=== PATIENT | female | born 1960 | race Caucasian/White ===

== ENCOUNTER 2024-12-07 05:22 | Inpatient (IN) ==
--- NOTE | 2024-10-25 11:25 | PAT Medication Instructions ---
Medication Instructions Date of Service October 25, 2024 Home Medications Collagen Powder 1 ea PO QAM Lactobacillus acidophilus 10 billion cell capsule (Probiotic) 10,000 mmu cells PO QAM acetaminophen 650 mg tablet,extended release 650 mg PO Q12H PRN Pain ascorbic acid (vitamin C) 1,000 mg tablet (Vitamin C) 1,000 mg PO QAM cholecalciferol (vitamin D3) 50 mcg (2,000 unit) tablet (Vitamin D3) 50 mcg PO QPM cyanocobalamin (vitamin B-12) 5,000 mcg capsule 5,000 mcg PO QPM gabapentin 300 mg capsule 300 mg PO BID ibuprofen 200 mg tablet 400 mg PO Q8H PRN Pain magnesium oxide 400 mg PO HS zinc 50 mg tablet 50 mg PO QPM MEDICATION INSTRUCTIONS: ASK your surgeon for instructions ibuprofen 200 mg tablet 400 mg PO Q8H PRN Pain DO NOT take the morning of surgery Collagen Powder 1 ea PO QAM Lactobacillus acidophilus 10 billion cell capsule (Probiotic) 10,000 mmu cells PO QAM ascorbic acid (vitamin C) 1,000 mg tablet (Vitamin C) 1,000 mg PO QAM Take morning of surgery With a small sip of water, OTHERWISE NOTHING TO EAT OR DRINK AFTER MIDNIGHT: acetaminophen 650 mg tablet,extended release 650 mg PO Q12H PRN Pain gabapentin 300 mg capsule 300 mg PO BID Take evening before surgery cholecalciferol (vitamin D3) 50 mcg (2,000 unit) tablet (Vitamin D3) 50 mcg PO QPM cyanocobalamin (vitamin B-12) 5,000 mcg capsule 5,000 mcg PO QPM magnesium oxide 400 mg PO HS zinc 50 mg tablet 50 mg PO QPM acetaminophen 650 mg tablet,extended release 650 mg PO Q12H PRN Pain gabapentin 300 mg capsule 300 mg PO BID Other Notes If you have any questions please call us at [phone] or [phone] or [phone] or [phone]
--- NOTE | 2024-11-01 14:37 | Anesthesiology Consultation ---
Date of Service November 01, 2024 Assessment & Plan (1) Encounter for pre-operative examination: - will request most recent [facility] neurology office note for chart completion. - awaiting surgeon ordered medical clearance, Dr. Zuniga. - Case discussed in detail with Dr. Olson who advised patient could be a candidate for either neuraxial or general anesthesia with ultimate determination to assigned anesthesiologist discussion with patient am DOS. Bolus therefore not ordered as will be to anesthesiologist's decision am DOS. Patient and her were made aware, they denied questions or concerns. - Outpatient joint assessment: Patient is currently scheduled for inpatient pathway. If re-evaluated and patient/surgeon requests outpatient pathway, patient is not a candidate for outpatient joint program. Chart Review Chart Review: Pending: Refer to Additional Notes / Consult section and Patient seen in Pre Admission Testing Teaching & Discussion Pre-Anesthesia Teaching/Discussion Notes: Instructed NPO after midnight before surgery, except medications with 15 cc of water. Medication instructions provided according to the PAT guidelines. History Surgery Operation Date: 12/07/24 07:00 Proposed Procedures p Right Total Hip Arthroplasty with Dual Mobility Implants - Preet Clancy MD Height/Weight Height: 5 ft 6.5 in Weight: 79.9 kg Allergies Allergy/AdvReac Type Severity Reaction Status Date / Time esomeprazole [From Nexium] Allergy Unknown unsure of Verified 10/25/24 09:34 reaction "wasn't serious" Medications Home Medications Medication Instructions Recorded Confirmed Last Taken Collagen Powder 1 ea PO QAM 10/25/24 10/25/24 Unknown Lactobacillus acidophilus 10 10,000 mmu cells PO QAM 10/25/24 10/25/24 Unknown billion cell capsule (Probiotic) acetaminophen 650 mg 650 mg PO Q12H PRN Pain 10/25/24 10/25/24 Unknown tablet,extended release ascorbic acid (vitamin C) 1,000 mg 1,000 mg PO QAM 10/25/24 10/25/24 Unknown tablet (Vitamin C) cholecalciferol (vitamin D3) 50 50 mcg PO QPM 10/25/24 10/25/24 Unknown mcg (2,000 unit) tablet (Vitamin D3) cyanocobalamin (vitamin B-12) 5,000 mcg PO QPM 10/25/24 10/25/24 Unknown 5,000 mcg capsule gabapentin 300 mg capsule 300 mg PO BID 10/25/24 10/25/24 Unknown ibuprofen 200 mg tablet 400 mg PO Q8H PRN Pain 10/25/24 10/25/24 Unknown magnesium oxide 400 mg PO HS 10/25/24 10/25/24 Unknown zinc 50 mg tablet 50 mg PO QPM 10/25/24 10/25/24 Unknown Past Medical History Medical History (Updated 11/01/24 @ 14:33 by Alice Velazquez PA-C) Cervical spinal stenosis 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 Treated at [facility] then tx to [facility] for 4 weeks in a coma, then to rehab. denies pulmonology complications/limitations now Hx of deep venous thrombosis (~2014) right arm, bilat legs, 2015 while being tx for Guilain Healy "bedrest" Hx of gastroesophageal reflux (GERD) controlled, stable per pt Hx of melanoma of skin s/p excision Hx of vertigo Muscle weakness "generalized all over" Nerve damage left lower extremity-occasional falls-denies any recent falls-ambulates with walking pole or walker for longer ambulation Neuropathy Osteoarthritis Post traumatic stress disorder Urinary urgency Urinary, incontinence, stress female Patient denies h/o stroke, seizures, heart attack, heart failure, DM, HTN, or blood transfusions. Exercise / Class Metabolic Activity III < 4 Walking/Shop/Light housework (occasional shortness of breath if doing increased activity-notes correlation with reduced physical activity due to right hip-denies chest discomfort) Past Family History Family History Other No family history of adverse response to anesthesia Past Surgical History Surgical History History of anesthesia reaction novocaine given for dental procedure>increased vertigo (at time of procedure already had vertigo) Hx of tracheostomy ? details>in place for 6 weeks while being tx in 2014 [facility] [place] teeth removed Past Anesthesia History No Family Hx of Anesthesia Complications and Other (worsened vertigo with novocaine) History of PONV No Hx of PONV and Hx of Motion Sickness Social History Smoking Status: Never smoker Do You Dip or Chew Tobacco: No Hx Alcohol Use: No substance use type: does not use Review of Systems Snoring, denies witnessed apneas. Patient denies chest pain, fever, chills, cough, wheezing, or palpitations. Physical Exam Vital Signs Vitals BP 117/77 P 78 TEMP 98.1 SP02 95% on RA RESP 18 Physical Patient resting comfortably in chair in no acute distress, alert and oriented, responding appropriately throughout visit Full cervical extension range of motion without pain TMD 3.5 finger breadths Mallampati Score 2 Dentition: several caps/crowns, denies chipped or loose teeth, implants or bridges Lungs: normal respiratory effort. Good air movement, clear throughout to auscultation, no adventitious breath sounds Cardiac: regular rate and rhythm, no murmurs noted Carotid arteries: negative bruit bilat Lab Results Anesthesia Preop Results Results Anesthesia Widget: WBC 6.47 K/ul (4.8-10.8) 11/01/24 Hgb 14.1 g/dl (12.0-16.0) 11/01/24 Hct 43.1 % (37.0-47.0) 11/01/24 Plt 320 K/uL (130-400) 11/01/24 Na 139 mmol/L (136-145) 11/01/24 K 4.5 mmol/L (3.5-5.1) 11/01/24 Cl 106 mmol/L (98-107) 11/01/24 CO2 26 mmol/L (21-32) 11/01/24 BUN 18 mg/dl (6-23) 11/01/24 Creat 0.73 mg/dl (0.6-1.2) 11/01/24 Glucose Level 106 mg/dl (70-99(Fasting)) H 11/01/24 PT 10.8 Seconds (9.0-12.0) 11/01/24 PTT 28 Seconds (21-31) 11/01/24 INR 1.0 (0.9-1.1) 11/01/24 Urine Color Yellow 11/01/24 Urine Appearance Clear (Clear) 11/01/24 Urine pH 7.5 (4.5-7.5) 11/01/24 Urine Specific Camino 1.027 (1.000-1.030) 11/01/24 Urine Protein Negative (Negative) 11/01/24 Urine Glucose (UA) Negative (Negative) 11/01/24 Urine Ketones Trace (Negative) H 11/01/24 Urine Blood Negative (Negative) 11/01/24 Urine Nitrite Negative (Negative) 11/01/24 Urine Bilirubin Negative (Negative) 11/01/24 Urine Urobilinogen Negative (Negative) 11/01/24 Urine Leukocyte Esterase Negative (Negative) 11/01/24 Blood Type A Positive 11/01/24 Antibody Screen NEGATIVE 11/01/24 Testing Electrocardiogram Date: 11/01/24 NSR, rate 67 bpm Low voltage QRS Chest X-Ray Date: 11/01/24 No acute findings. Stress Test Date: 11/23/18 MPHR 63% LVEF 79% Low risk, no significant ischemia
--- NOTE | 2024-12-07 05:21 | History & Physical Bridge Note ---
Date of Service December 07, 2024 History & Physical Bridge Note I have examined the patient, reviewed the History & Physical and in the interval since the performance of the History & Physical I have noted the following changes of clinical significance:consent and site verified/reviewed risks especially infection,instability,leg length inequality,DVT/PE and nerve dysfunction. no changes noted.
[2024-12-07] MEDS: LR 60ML/HR IV SCH (06:05)
[2024-12-07] MEDS: LR 500ML BOLUS, THEN 15ML/HR IV SCH (06:05)
[2024-12-07] MEDS ORDERED: TXA 10% Non-IV Routes 100 MG/ML VIAL TOP ONE (06:07)
[2024-12-07] MEDS ORDERED: PROPOFOL IV EMULSION 10 MG/ML 20 ML VIAL IV ONE (06:17)
[2024-12-07] MEDS ORDERED: PROPOFOL IV EMULSION 10 MG/ML 100 ML VIAL IV ONE (06:17)
[2024-12-07] MEDS ORDERED: LIDOCAINE 2% 2 ML VIAL/AMP(20MG/ML) INFIL ONE (06:17)
[2024-12-07] MEDS ORDERED: MIDAZOLAM HCL 1 MG/ML 2ML VIAL ONE (06:18)
[2024-12-07] MEDS ORDERED: DexMEDEtomidine HCL IV 100 MCG/ML VIAL IV ONE (06:28)
[2024-12-07] MEDS ORDERED: BUPIVACAINE 0.5 % 5 MG/1 ML PF 10ML VIAL ONE (06:34)
[2024-12-07] MEDS ORDERED: ROCURONIUM BROMIDE 10 MG/ML 5 ML VIAL IV ONE (06:48)
[2024-12-07] MEDS ORDERED: KETAMINE HCL 10MG/ML SYR ONE (07:13)
[2024-12-07] MEDS ORDERED: ONDANSETRON INJ 2 MG/ML 2 ML VIAL IV PRN (07:22)
[2024-12-07] MEDS ORDERED: PROMETHAZINE HCL 6.25 MG in SODIUM CHLORIDE 0.9% 50 ML IV PRN (07:22)
[2024-12-07] MEDS ORDERED: ATROPINE SULFATE 0.1 MG/ML 10ML SYR IV PRN (07:22)
[2024-12-07] MEDS ORDERED: HYDROmorphone INJ 2 MG/ML SYR/VIAL ONE (07:26)
[2024-12-07] MEDS: ORTHO JOINT ANESTHETIC ONE (07:34)
[2024-12-07] MEDS ORDERED: ePHEDrine sulfate 50 MG/5 ML SYR ONE (07:41)
[2024-12-07] MEDS ORDERED: ONDANSETRON INJ 2 MG/ML 2 ML VIAL ONE (08:01)
[2024-12-07] MEDS ORDERED: DEXAMETHASONE SOD INJ 4 MG/ML VIAL ONE (08:01)
[2024-12-07] MEDS: TRANEXAMIC ACID 1,000 MG x 1 **TOPICAL Use Intraop TOP SCH (08:06)
[2024-12-07] MEDS ORDERED: SUGAMMADEX SODIUM 200 MG/2 ML VIAL IV ONE (08:26)
--- NOTE | 2024-12-07 08:27 | XRay Report ---
XR hip RT 1V HISTORY: 64 years-old Female RT BENRARDINO right hip arthroplasty COMPARISON: None TECHNIQUE: Lateral view of the right hip FINDINGS: Right hip arthroplasty demonstrates satisfactory alignment without acute fracture. Retractors are in place along with deep tissue air during this intraoperative study. IMPRESSION: Satisfactory alignment of the right hip arthroplasty. ACT 112: Negative or not required by law. The above report was generated using voice recognition software. It may contain grammatical, syntax o r spelling errors. Electronically signed by: Uri Uriostegui M.D. 12/07/2024 8:26 AM
[2024-12-07] MEDS: ROPIV 0.5% 246mg, Ketorolac 30mg, EPINEPHrine 0.5mg in NSS INFIL SCH (08:29)
--- NOTE | 2024-12-07 08:42 | Post Operative Brief Note ---
Immediate Post Op Note Date of Surgery December 07, 2024 Pre & Post Diagnosis Operation Date: 12/07/24 07:00 Pre-Op Diagnosis: Right Hip Osteoarthritis Post-Op Diagnosis: Right Hip Osteoarthritis I identified the patient and participated in the time-out.: Yes Procedure Operation Date: 12/07/24 07:00 Actual Procedures p Right Total Hip Arthroplasty with Dual Mobility Implants, Uncemented(Right) - Preet Clancy MD Surgeon Preet Clancy MD Client Relationship Manager [place] no resident or fellow available Estimated Blood Loss 150 Findings Consistent with Post-Op Diagnosis Advanced osteoarthritis right hip with marked deformity of the acetabulum posterior wall and retroversion of the cup. Significant osteophytes around femoral head neck and the acetabulum anteriorly and inferiorly. Fluids 1800 cc Complications None
--- NOTE | 2024-12-07 08:49 | Operative Report ---
Post Operative Report Pre & Post Diagnosis Operation Date: 12/07/24 07:00 Pre-Op Diagnosis: Right Hip Osteoarthritis Post-Op Diagnosis: Right Hip Osteoarthritis I identified the patient and participated in the time-out.: Yes Procedure Operation Date: 12/07/24 07:00 Actual Procedures p Right Total Hip Arthroplasty with Dual Mobility Implants, Uncemented(Right) - Preet Clancy MD Surgeon Preet Clancy MD Wealth Management Director [place] no resident or fellow available Estimated Blood Loss 150 Findings Consistent with Post-Op Diagnosis Severe osteoarthritis right hip with marked femoral head neck osteophytes acetabular osteophytes and posterior deficiency of the acetabular wall secondary to retroversion of the acetabulum. Fluids 1800 cc Specimens Bone pathology Drains None Complications None Indications Severe pain failed conservative management marked x-ray degenerative arthritis right hip Description of Procedure At the patient was brought identified site verified consent verified antibiotics confirmed as being given the patient was placed in the left lateral decubitus position after markers were placed on the leg. The leg lengths were relatively equal. Once prepped and draped officially posterior approach the hip was made based on size of the patient. Full-thickness flaps raised. IT band and gluteus vivek fascia split. Tractors placed with care taken to protect the sciatic nerve. This patient has significant issues with nerve damage secondary to Guillain-Asher syndrome. Cognizance of pressure on any nerve during the procedure was heightened. Once appropriate retractors were placed, and the nerve protected the short external rotators were then identified they were released they were markedly contracted based on her retroversion. Capsule was then teed and the hip was easily dislocated. Femoral neck was then resected leaving about a centimeter at the trochanter lesser measurement. As Exposure was excellent. Remaining labrum and osteophytes resected appropriately. Serial reaming carried up to a 50 to 50 cup impacted in position. There was roughly 70% coverage. It had excellent fixation. A 15 mm x 6.5 mm screw was placed with excellent purchase. The dual mobility liner was then impacted with no issue. Femur was then flexed internally rotated and serial broaching reaming carried up after the canal finder was utilized as well as the lateralizing rasp. Intraoperative x-ray was taken just to confirm the acetabulum being appropriately covered. This revealed that it was screw position with good that we can probably go up 1 size on the femur. That was carried out and went up to a size 3 that fit well. Trial reduction was excellent. All remaining trial elements were removed. Permanent femur was then impacted in position as well as the head neck. The trial reduction carried out no issues. The hip was stable leg lengths were within millimeters of the quality. Acetabular component was rock stable. Wound was then hans irrigated secondary to correction of the retroversion the capsule and the short external rotators could not be repaired. Do not place any undue tension on the nerve as well. Gluteus vivek fascia and IT band fascia were then closed with #2 Vicryl deep fat with the same and superficial subcutaneous tissue with 2-0 Vicryl skin with standstill clips. Appropriate wound dressing was applied. Patient was then transferred recovery in satisfactory stomach tolerated the procedure well. Summary of implants acetabular shell sector cup size 56.5 x 15 screw 50/45 dual mobility liner . 43/22 poly liner. 22+4 articular lesion metal head (no ceramics available). Femoral stem 3 standard. All DePuy J&J total hip system. EBL was 150 cc or less crystalloid 1600 cc. DVT PE prophylaxis to start tomorrow. Bone pathology pending. I attest to the content of the Intraoperative Record and any orders documented therein. Any exceptions are noted below.
--- NOTE | 2024-12-07 08:55 | Orthopedic Progress Note ---
Date of Service December 07, 2024 Orthopedic Progress Note Patient underwent elective right total replacement for severe osteoarthritis acetabular retroversion. She tolerated the procedure well. She denies chest pain shortness of breath fever chills nausea or headache. Vital signs are stable she is afebrile. Neurovascular check reveals intact sciatic nerve upon awakening from anesthesia. Intraoperative lapidary apprentice x-ray looked good. Assessment status post noncemented right total replacement continue care path way. contacted. Initiate anticoagulation tomorrow.
--- NOTE | 2024-12-07 08:57 | Discharge Summary ---
Date of Service December 07, 2024 Final discharge summary will be provided by medical coverage. At this point in time from orthopedic perspective she is awaiting medical clearance for discharge/transfer to rehab hospital or snf facility with inpatient rehab. Admission HPI Per Admitting Provider Osteoarthritis right hip Principal Diagnosis Status post right total hip replacement Discharge Data Allergies Allergy/AdvReac Type Severity Reaction Status Date / Time esomeprazole [From Nexium] Allergy Unknown unsure of Verified 12/07/24 05:45 reaction "wasn't serious" Vaccinations None Consultations Cardiology chief construction inspector and internal medicine Procedures Performed Operation Date: 12/07/24 07:00 Actual Procedures p Right Total Hip Arthroplasty with Dual Mobility Implants, Uncemented(Right) - Preet Clancy MD Ordered Studies X-rays workup for cardiorespiratory event in PACU unclear etiology; bone pathology Hospital Course (1) Status post right hip replacement: Care pathway for total replacement/Awaiting workup for cardiorespiratory event. Plan Care pathway for total replacement complicated by DM Asher syndrome will require higher level of surveillance and potential inpatient rehab. Total Time Total Time Spent Total Time Spent (In Minutes): 10 minutes Discharge Plan Discharge Items Reason For Visit: Right Hip Osteoarthritis Follow-up/Referrals: Eagle Zuniga MD [Primary Care Provider] - Stand-Alone Forms: [facility] Medications and DC Order Prescriptions: No Action ascorbic acid (vitamin C) [Vitamin C] 1,000 mg Tablet 1,000 mg PO QAM acetaminophen [Tylenol Extended Release] 650 mg Tablet Extended Release 650 mg PO Q12H PRN (Reason: Pain) ibuprofen 200 mg Tablet 400 mg PO Q8H PRN (Reason: Pain) gabapentin 300 mg Capsule 300 mg PO BID zinc 50 mg Tablet 50 mg PO QPM Rx Instructions: administer on empty stomach, at least 1 hour before or after meal(s) cholecalciferol (vitamin D3) [Vitamin D3] 50 mcg (2,000 unit) Tablet 50 mcg PO QPM magnesium oxide 400 mg magnesium Capsule 400 mg PO HS Probiotic 10 billion cell Capsule 10,000 mmu cells PO QAM cyanocobalamin (vitamin B-12) 5,000 mcg Capsule 5,000 mcg PO QPM Collagen Powder 1 ea PO QAM Admission Data Admit Date/Time: 12/07/24 09:04 Attending Provider: Slade Aguiar Admit Provider: Preet Clancy Primary Care Provider: Eagle Zuniga Other Providers: [facility]; Timi Ruiz; Gray Martell; Slade Aguiar; Preet Clancy
--- NOTE | 2024-12-07 08:59 | Operative Report ---
Post Operative Report Pre & Post Diagnosis Operation Date: 12/07/24 07:00 Pre-Op Diagnosis: Right Hip Osteoarthritis Post-Op Diagnosis: Right Hip Osteoarthritis I identified the patient and participated in the time-out.: Yes Procedure Operation Date: 12/07/24 07:00 Actual Procedures p Right Total Hip Arthroplasty with Dual Mobility Implants, Uncemented(Right) - Preet Clancy MD Surgeon HATTIE Clancy MD Director Of Community Education [facility] no resident or fellow available Estimated Blood Loss 150 Findings Consistent with Post-Op Diagnosis see operative report Specimens see operative report Drains none Complications none Disposition Accompanied Patient To Recovery: Yes Indications This 64 year old female presented to the office complaints of persisting right hip pain. She had tried conservative care measures without improvement. She elected to proceed with surgical intervention after being educated about potential risks and outcomes. Preoperative imaging was obtained. Description of Procedure The patient was taken to the operating room where she was given general anesthesia. She was prepped and draped in the usual sterile fashion. Please see Dr. Clancy's operative report for specifics of the procedure. I was present for the entire case from initial patient positioning through final wound closure. Assistance was provided in tissue retraction, hemostasis, trial implant placement, final implant placement, and final wound closure. The patient was taken to the recovery room in satisfactory condition. I attest to the content of the Intraoperative Record and any orders documented therein. Any exceptions are noted below.
--- NOTE | 2024-12-07 09:31 | XRay Report ---
XR pelvis 1-2V routine HISTORY: 64 years-old Female S/P R BERNARDINO right hip arthroplasty COMPARISON: Right hip radiographs of same day TECHNIQUE: AP view the pelvis FINDINGS: Moderate osteoarthritis of the left hip. Satisfactory alignment of the right hip arthroplasty. Latera l skin ricky are present along with expected postoperative soft tissue swelling and deep tissue air . No acute fracture, malalignment or unexpected opaque foreign body. IMPRESSION: Satisfactory alignment of the right arthroplasty. ACT 112: Negative or not required by law. The above report was generated using voice recognition software. It may contain grammatical, syntax o r spelling errors. Electronically signed by: Uri Uriostegui M.D. 12/07/2024 9:30 AM
[2024-12-07] MEDS: HYDROmorphone INJ 2 MG/ML SYR/VIAL IV PRN (09:38)
[2024-12-07] MEDS: HYDROmorphone INJ 1 MG/ML SYRINGE ONE (09:43)
[2024-12-07] MEDS: LABETALOL HCL IV 5 MG/ML 20ML IV STA (10:06)
[2024-12-07] MEDS: LABETALOL HCL IV 5 MG/ML 20ML IV ONE (10:11)
--- NOTE | 2024-12-07 10:26 | Anesthesiology Progress Note ---
Date of Service December 07, 2024 Subjective 0945-Responed to code blue in pacu bay 10. cpr in progress on arrival. Bag mask ventilation intitiated with 2 provider technique and 100%fio2. Definitive airway mateus. 0948-Patient was intubated atraumatically with miller2 blade and 7.0 ETT. 21cm. Bilateral BS audible by attending anesthesiologist x 4. Positive CO2 color change visualized. ETT secured at 21cm. No medications given for intubation. Physical Exam Vital Signs: Last Vital Signs Temp 36.3 C L 12/07/24 08:59 Pulse 69 12/07/24 09:35 Resp 18 12/07/24 09:35 BP 130/77 12/07/24 09:35 Pulse Ox 96 12/07/24 09:35 O2 Del Method Oxymask 12/07/24 09:35 O2 Flow Rate 5 12/07/24 09:35 Results & Data ([place]) Medications Administered Hydromorphone HCl (Hydromorphone Inj 2 Mg/Ml Syr/Vial) 0.5 mg IV Q5M PRN PRN Reason: PACU Use Only-Pain Stop: 12/07/24 15:22 Last Admin: 12/07/24 09:38 Dose: 0.5 mg Documented By: XOCHITL Lactated Ringer's (Lr) 1,000 mls @ 60 mls/hr IV .[id number] [facility] Stop: 12/07/24 22:39 Last Admin: 12/07/24 06:05 Dose: Not Given Documented By: BRIA Cefazolin Sodium (Ancef 2000mg) 2,000 mg in 15 mls @ 3.75 mls/min IV PREOP [facility]; Protocol Stop: 12/07/24 18:00 Last Admin: 12/07/24 07:13 Dose: 3.75 mls/min Documented By: [id number] Ropivacaine 246 mg/ Ketorolac Tromethamine 30 mg/Epinephrine HCl 0.5 mg/ Sodium Chloride 100.7 mls @ 0 mls/hr INFIL TODAY@0600 [facility]; Protocol Stop: 12/07/24 16:00 Last Admin: 12/07/24 08:29 Dose: Not Given Documented By: FCO Lactated Ringer's (Lr) 1,000 mls @ 15 mls/hr IV .Q24H [facility] Stop: 12/07/24 18:00 Last Infusion: 12/07/24 06:55 Dose: Infused Documented By: Admin: 12/07/24 06:05 Dose: 15 mls/hr Documented By: BRIA
--- NOTE | 2024-12-07 10:40 | XRay Report ---
SINGLE VIEW CHEST CLINICAL HISTORY: Cardiac arrest status post chest compressions. FINDINGS: An AP, portable, supine chest radiograph is compared to study dated 11/01/2024. The examinat ion is degraded by portable technique and patient rotation. The cardiac silhouette appears enlarged. There is pulmonary vascular congestion. There are airspace opacities at the left lung base. No large pleural effusion or pneumothorax is seen. The skeletal structures are osteopenic. The bony thorax is grossly intact. There is gaseous distention of the stomach. IMPRESSION: 1. The cardiac silhouette appears enlarged and there is pulmonary vascular congestion. 2. Airspace opacities at the left lung base could represent atelectasis versus pneumonia/aspiration p neumonitis. Clinical correlation will be required. 3. No pneumothorax is seen. 4. There is significant gaseous distention of the stomach. ACT 112: Negative or not required by law. Electronically signed by: Otto Alvarez M.D. 12/07/2024 10:39 AM
--- NOTE | 2024-12-07 11:01 | Anesthesiology Progress Note ---
Date of Service December 07, 2024 Anesthesia Post Procedure Vital Signs Vital Signs: Temp Pulse Pulse Pulse Resp BP BP 12/07/24 10:11 103 H 111/71 12/07/24 10:06 138 H 170/87 H 12/07/24 09:35 69 18 130/77 12/07/24 09:25 74 18 137/84 12/07/24 09:15 63 15 122/65 12/07/24 09:05 68 15 138/82 12/07/24 08:59 36.3 C L 76 15 139/83 12/07/24 05:20 36.8 C 75 18 147/90 H Pulse Ox O2 Del Method O2 Flow Rate 12/07/24 10:11 12/07/24 10:06 12/07/24 09:35 96 Oxymask 5 12/07/24 09:25 96 Oxymask 5 12/07/24 09:15 96 Oxymask 5 12/07/24 09:05 98 Oxymask 8 12/07/24 08:59 94 Oxymask 8 12/07/24 05:20 94 Room Air Transfer of Care Handoff Completed per policy Notes Mental Status: alert / awake / arousable and participated in evaluation Patient Amnestic to Procedure: Yes Nausea / Vomiting: adequately controlled Pain: adequately controlled Airway Patency, RR, SpO2: stable & adequate BP & HR: stable & adequate Hydration State: stable & adequate Anesthetic Complications: no major complications apparent Notes: Pt had severe pain on arrival in PACU. Was treated w fentanyl 200mcg and hydromorphone 1 mg in divided doses. Pt subsequently became apneic and unresponsive and pulseless. Chest compressions and mask ventilation w 100% O2 were implemented. Pt was immediately orally intubated. Pt then noted to have return of pulse and BP. After several minutes of ventilation, she emerged with adequate spontaneous ventilation and was extubated. Atrial fibrillation noted on monitor. Body Artist consulted. ICU admission planned.
--- NOTE | 2024-12-07 11:56 | Orthopedic Progress Note ---
Date of Service December 07, 2024 Assessment & Plan Admission and Anticipated Discharge Date Admission Date: December 07, 2024 Subjective Attended to the patient in the PACU roughly 2 hours after I left her in good condition. Apparently there was a cardiorespiratory event in the PACU at some time during my second case. Anesthesia advised me at the completion of my second case. Went and talked to the as well. At this point time the patient is hemodynamically stable is alert and oriented moves her extremities at baseline she has significant Guillain-Asher syndrome. The operative side reveals a hip that is located the sciatic femoral femoral nerve that is functioning. Blood loss was minimal. Cardiology, satellite television installer, and hospitalist consults obtained. Assessment status post right total hip replacement intraoperative uneventful. Postoperative had significant cardiorespiratory event in PACU. Appropriate consultations are in place. Appropriate disposition to intensive care unit in place. has been kept informed. Results & Data Vital Signs (Past 12 Hours) Vital Signs Temp Pulse Pulse Pulse Resp BP BP 12/07/24 11:30 36.1 C L 64 15 108/68 12/07/24 11:20 36.1 C L 72 15 104/72 12/07/24 11:10 64 15 93/65 L 12/07/24 11:00 67 15 123/85 12/07/24 10:50 58 L 15 108/72 12/07/24 10:40 60 18 128/76 12/07/24 10:30 96 H 109/82 12/07/24 10:20 84 94/65 L 12/07/24 10:11 103 H 111/71 12/07/24 10:10 126 H 170/87 H 12/07/24 10:06 138 H 170/87 H 12/07/24 10:00 126 H 139/119 H 12/07/24 09:52 128 H 190/113 H 12/07/24 09:50 151 H 12/07/24 09:40 67 18 121/69 12/07/24 09:35 69 18 130/77 12/07/24 09:25 74 18 137/84 12/07/24 09:15 63 15 122/65 12/07/24 09:05 68 15 138/82 12/07/24 08:59 36.3 C L 76 15 139/83 12/07/24 05:20 36.8 C 75 18 147/90 H Pulse Ox O2 Del Method O2 Flow Rate 12/07/24 11:30 95 Oxymask 5 12/07/24 11:20 97 Oxymask 5 12/07/24 11:10 97 Oxymask 5 12/07/24 11:00 97 Oxymask 7 12/07/24 10:50 96 Oxymask 7 12/07/24 10:40 98 Oxymask 7 12/07/24 10:30 12/07/24 10:20 12/07/24 10:11 12/07/24 10:10 12/07/24 10:06 12/07/24 10:00 12/07/24 09:52 12/07/24 09:50 96 Oxymask 5 12/07/24 09:40 96 Oxymask 5 12/07/24 09:35 96 Oxymask 5 12/07/24 09:25 96 Oxymask 5 12/07/24 09:15 96 Oxymask 5 12/07/24 09:05 98 Oxymask 8 12/07/24 08:59 94 Oxymask 8 12/07/24 05:20 94 Room Air
[2024-12-07] MEDS ORDERED: MAGNESIUM HYDROXIDE SUSP 30 ML UDC PO PRN (12:14)
[2024-12-07] MEDS ORDERED: NALOXONE HCL 0.4 MG/1 ML VIAL/CARP IV PRN (12:14)
[2024-12-07] MEDS ORDERED: ALUMINUM/MAGNESIUM SUSP 30 ML UDC PO PRN (12:14)
[2024-12-07] MEDS ORDERED: HYDROmorphone INJ 0.5 MG/0.5 ML SYR IV PRN (12:14)
[2024-12-07] MEDS ORDERED: diphenhydrAMINE 50 MG/ML VIAL IV PRN (12:14)
--- NOTE | 2024-12-07 12:14 | Cardiology Consultation ---
Date of Consultation December 07, 2024 Assessment & Plan (1) PEA (Pulseless electrical activity): (2) Acute respiratory failure: (3) Paroxysmal atrial fibrillation: Plan ASSESSMENT/PLAN: 1. Respiratory arrest with PEA: Based on available information, event likely related to hypoxia following narcotics, which led to bradycardia. When reviewing records, after transfer to the ICU, she required BiPAP. Labs ordered, including electrolytes, renal function, TSH. Respiratory support as per critical care team. Echo ordered and completed. Continue telemetry. 2. Atrial fibrillation: Paroxysmal. Spontaneously converted after several minutes on 12/07/24. Likely due to her respiratory failure/PEA arrest and postoperative state. If this is the case, she would not require long-term anticoagulation therapy for stroke risk reduction. Continue telemetry. Echo and labs ordered as above. 3. Disposition: Cardiology will continue to follow. Pt care was communicated with Mr. Cedeño of the ortho team. Highly complex medical issues. History of Present Illness Reason for Consultation: Arrest and afib Requesting Physician: Preet Clancy MD Attending Physician: Preet Clancy MD History of Present Illness Ms. 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 Cardiology was consulted due to PEA arrest while in the PACU. She was seen in the PACU late this morning, before transfer to the ICU. As patient was still quite somnolent from surgery, history was obtained by reviewing available records, discussing with nursing staff, orthopedics (Attila Cedeño), and anesthesiology, Dr. Prado. She apparently was in a great deal of pain immediately postoperatively and was given fentanyl 100 mcg and Dilaudid 0.5 mg in the OR and another Dilaudid 1 mg in the PACU. Nursing staff initially reported that there was no pulse oximetry data available and she was noted to become significantly bradycardic and p ulseless. She received chest compressions and underwent brief intubation/ventilation before being extubated. Rhythm strips were available on the chart for review, but unfortunately the entirety of the event was not available for review on telemetry. Rhythm strips demonstrated profound sinus bradycardia. Following the event, after ROSC, she was noted to be in atrial fibrillation with rapid ventricular response on telemetry and ECG. Several minutes later (exact times not available for review at the time of this note or evaluation earlier today), she spontaneously converted to sinus rhythm. She received labetalol 5 mg IV x 2 due to systolic blood pressures in the 180s to 190s and A-fib with RVR with heart rates in the 120s per other provider/nursing staff. When she was seen at the bedside earlier today, she denies chest pain, shortness of breath, palpitations. She denies recent bleeding such as melena, hematochezia, or hematuria. Review of systems: As above. Family history: Mother with [place]. Social history: No reported smoking. . Unaccompanied while in the PACU. Allergies Allergy/AdvReac Type Severity Reaction Status Date / Time esomeprazole [From Nexium] Allergy Unknown unsure of Verified 12/07/24 05:45 reaction "wasn't serious" Home Medications Medication Instructions Recorded Confirmed Type Collagen Powder 1 ea PO QAM 10/25/24 12/07/24 History Lactobacillus acidophilus 10 10,000 mmu cells PO QAM 10/25/24 12/07/24 History billion cell capsule (Probiotic) acetaminophen 650 mg 650 mg PO Q12H PRN Pain 10/25/24 12/07/24 History tablet,extended release ascorbic acid (vitamin C) 1,000 mg 1,000 mg PO QAM 10/25/24 12/07/24 History tablet (Vitamin C) cholecalciferol (vitamin D3) 50 50 mcg PO QPM 10/25/24 12/07/24 History mcg (2,000 unit) tablet (Vitamin D3) cyanocobalamin (vitamin B-12) 5,000 mcg PO QPM 10/25/24 12/07/24 History 5,000 mcg capsule gabapentin 300 mg capsule 300 mg PO BID 10/25/24 12/07/24 History ibuprofen 200 mg tablet 400 mg PO Q8H PRN Pain 10/25/24 12/07/24 History magnesium oxide 400 mg PO HS 10/25/24 12/07/24 History zinc 50 mg tablet 50 mg PO QPM 10/25/24 12/07/24 History Problem List (Updated 12/07/24 @ 08:55 by Preet Clancy MD) Paroxysmal atrial fibrillation Acute respiratory failure Afib PEA (Pulseless electrical activity) Cardiac arrest Status post right hip replacement Patient History Medical History Nerve damage left lower extremity-occasional falls-denies any recent falls-ambulates with walking pole or walker for longer ambulation Muscle weakness "generalized all over" Hx of vertigo Cervical spinal stenosis Osteoarthritis Urinary urgency Urinary, incontinence, stress female Hx of gastroesophageal reflux (GERD) controlled, stable per pt Hx of melanoma of skin s/p excision Neuropathy Post traumatic stress disorder Hx of deep venous thrombosis (~2014) right arm, bilat legs, 2015 while being tx for Guilain Foster "bedrest" 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 Treated at [place] then tx to [place] [facility] for 4 weeks in a coma, then to rehab. denies pulmonology complications/limitations now Surgical History (Updated 12/07/24 @ 08:55 by Preet Clancy MD) History of anesthesia reaction novocaine given for dental procedure>increased vertigo (at time of procedure already had vertigo) [place] teeth removed Hx of tracheostomy ? details>in place for 6 weeks while being tx in 2014 [facility] Family History Other No family history of adverse response to anesthesia Social History Smoking Status: Never smoker Second Hand Exposure: No; Do You Dip or Chew Tobacco: No; Hx Alcohol Use: No Preferred Language: Greek Manager Pricing Required: No Beliefs That Will Affect Care: None Current Living Situation: Spouse Feels Safe at Home: Yes Safety Concerns: Feels Safe At This Time Assistive Devices: Contacts, Glasses and Walker Physical Exam Physical Exam: Gen.: No acute distress. Somnolent but arousable with verbal communication. Neck: No JVD. No bruits. Normal carotid upstrokes bilaterally. Cardiac: Regular. Normal S1-S2. No murmurs, rubs, or gallops. Pulmonary: Decreased breath sounds bilaterally, but otherwise clear to auscultation bilaterally without wheezes, rales, or rhonchi. Abdomen: Soft, nontender, nondistended, with hypoactive bowel sounds. No bruits noted. Extremities: 2+ radial pulses bilaterally. 2+ posterior tibialis pulses bilaterally. No edema or cyanosis. Results & Data Vital Signs (Past 12 Hours) Vital Signs Temp Pulse Pulse Pulse Resp BP BP 12/07/24 11:30 36.1 C L 64 15 108/68 12/07/24 11:20 36.1 C L 72 15 104/72 12/07/24 11:10 64 15 93/65 L 12/07/24 11:00 67 15 123/85 12/07/24 10:50 58 L 15 108/72 12/07/24 10:40 60 18 128/76 12/07/24 10:30 96 H 109/82 12/07/24 10:20 84 94/65 L 12/07/24 10:11 103 H 111/71 12/07/24 10:10 126 H 170/87 H 12/07/24 10:06 138 H 170/87 H 12/07/24 10:00 126 H 139/119 H 12/07/24 09:52 128 H 190/113 H 12/07/24 09:50 151 H 12/07/24 09:40 67 18 121/69 12/07/24 09:35 69 18 130/77 12/07/24 09:25 74 18 137/84 12/07/24 09:15 63 15 122/65 12/07/24 09:05 68 15 138/82 12/07/24 08:59 36.3 C L 76 15 139/83 12/07/24 05:20 36.8 C 75 18 147/90 H Pulse Ox O2 Del Method O2 Flow Rate 12/07/24 11:30 95 Oxymask 5 12/07/24 11:20 97 Oxymask 5 12/07/24 11:10 97 Oxymask 5 12/07/24 11:00 97 Oxymask 7 12/07/24 10:50 96 Oxymask 7 12/07/24 10:40 98 Oxymask 7 12/07/24 10:30 12/07/24 10:20 12/07/24 10:11 12/07/24 10:10 12/07/24 10:06 12/07/24 10:00 12/07/24 09:52 12/07/24 09:50 96 Oxymask 5 12/07/24 09:40 96 Oxymask 5 12/07/24 09:35 96 Oxymask 5 12/07/24 09:25 96 Oxymask 5 12/07/24 09:15 96 Oxymask 5 12/07/24 09:05 98 Oxymask 8 12/07/24 08:59 94 Oxymask 8 12/07/24 05:20 94 Room Air Laboratory Results Laboratory Results - last 24 hr 12/07/24 12/07/24 12:10 12:46 POC Glucose 195 H Nasal Screen MRSA (PCR) Negative Diagnostic Findings Available telemetry strips reviewed: Near the time of her pulseless event, profound sinus bradycardia. No noted arrhythmia during the event. Following the event, atrial fibrillation with rapid ventricular response. When evaluated late this morning, on telemetry sinus rhythm was noted. ECHO 12/07/24: 1. Normal left ventricular size and systolic function. EF 60-65%. No regional wall motion abnormalities. Mild concentric left ventricular hypertrophy. 2. No significant valvular abnormalities. 3. Normal estimated right ventricular systolic pressure. 4. Technically difficult study, enhanced with IV Definity. 5. No prior study available for comparison. Labs ordered and reviewed from 12/07/2024: Mild anemia, normal potassium, normal renal function, normal magnesium, normal TSH. ECG personally reviewed 12/07/2024: afib rvr [address] abnormality. History and physical report reviewed. Medications Administered Current Inpatient Medications Acetaminophen (Acetaminophen 500 Mg Tab) 1,000 mg PO Q8 ANDREIA Stop: 01/06/25 13:59 Last Admin: 12/07/24 14:16 Dose: Not Given Al Hydrox/Mg Hydrox/Simethicone (Aluminum/Magnesium Susp 30 Ml Udc) 15 ml PO Q 4H PRN PRN Reason: Heartburn Stop: 01/06/25 12:13 Apixaban (Apixaban 2.5 Mg Tab) 2.5 mg PO BID ANDREIA Stop: 01/07/25 08:59 Ascorbic Acid (Ascorbic Acid 500 Mg Tab) 500 mg PO BIDM ANDREIA Stop: 01/06/25 16:59 Last Admin: 12/07/24 16:13 Dose: Not Given Bisacodyl (Bisacodyl 10 Mg Supp) 10 mg GA DAILY PRN PRN Reason: Constipation Stop: 01/06/25 12:13 Dextrose (Dextrose 50% 50 Ml Syringe) 25 - 50 ml IV UD PRN; Protocol PRN Reason: Hypoglycemia Protocol Stop: 01/06/25 12:49 Diphenhydramine HCl (Diphenhydramine 50 Mg/Ml Vial) 25 mg IV Q8H PRN PRN Reason: Itching Stop: 01/06/25 12:13 Docusate Sodium (Docusate Sodium 100 Mg Cap) 100 mg PO BID [facility] Stop: 01/06/25 20:59 Ferrous Gluconate (Ferrous Gluconate 324 Mg Tab) 324 mg PO BIDM ANDREIA Stop: 01/06/25 16:59 Last Admin: 12/07/24 16:13 Dose: Not Given Gabapentin (Gabapentin 300 Mg Cap) 300 mg PO BID ANDREIA Stop: 01/06/25 12:59 Last Admin: 12/07/24 12:38 Dose: Not Given Glucagon (Glucagon For Inj 1 Mg Vial) 1 mg SQ UD PRN; Protocol PRN Reason: Hypoglycemia Protocol Stop: 01/06/25 12:49 Glucose (Glucose 40% Gel 15 Gm Tube) 15 - 30 gm PO UD PRN; Protocol PRN Reason: Hypoglycemia Protocol Stop: 01/06/25 12:49 Glucose (Glucose 10 Tab/Tube) 4 - 8 tab PO UD PRN; Protocol PRN Reason: Hypoglycemia Protocol Stop: 01/06/25 12:49 Hydromorphone HCl (Hydromorphone Inj 0.5 Mg/0.5 Ml Syr) 0.5 mg IV Q2H PRN PRN Reason: Pain or Pre PT Stop: 12/21/24 12:13 Sodium Chloride (Nss) 1,000 mls @ 100 mls/hr IV .Q10H [facility] Stop: 12/08/24 06:00 Last Admin: 12/07/24 12:33 Dose: 100 mls/hr Cefazolin Sodium (Ancef 2000mg) 2,000 mg in 15 mls @ 3.75 mls/min IV Q8H [facility]; Protocol Stop: 12/07/24 23:03 Last Admin: 12/07/24 15:10 Dose: 3.75 mls/min Dexamethasone 10 mg/ Syringe 2.5 mls @ 1 mls/min IV TODAY@08 [facility] Stop: 12/08/24 08:03 Insulin Aspart (Insulin Aspart Per Unit Charge) 0 units SC Q6H [facility] Stop: 01/06/25 12:59 Last Admin: 12/07/24 13:21 Dose: 1 units Ketorolac Tromethamine (Ketorolac Tromethamine 15 Mg/Ml Vial) 15 mg IV Q6H ANDREIA Stop: 12/08/24 07:01 Last Admin: 12/07/24 13:09 Dose: 15 mg Magnesium Hydroxide (Magnesium Hydroxide Susp 30 Ml Udc) 30 ml PO Q6H PRN PRN Reason: Constipation Stop: 01/06/25 12:13 Magnesium Oxide (Magnesium Oxide 400 Mg Tab) 400 mg PO HS ANDREIA Stop: 01/06/25 20:59 Metoclopramide HCl (Metoclopramide Hcl Inj 5 Mg/Ml 2 Ml Vial) 10 mg IV Q6H PRN PRN Reason: Nausea And Vomiting Stop: 01/06/25 12:13 Last Admin: 12/07/24 13:09 Dose: 10 mg Miscellaneous (Carbohydrates For Hypoglycemia ) 15 - 30 gm PO UD PRN PRN Reason: Hypoglycemia Protocol Stop: 01/06/25 12:49 Multivitamins (Multivitamin Tab) 1 tab PO QAM ANDREIA Stop: 01/07/25 08:59 Naloxone HCl (Naloxone Hcl 0.4 Mg/1 Ml Vial/Carp) 0.1 mg IV Q5M PRN PRN Reason: Oversedation/Resp Depression Stop: 01/06/25 12:13 Ondansetron HCl (Ondansetron Inj 2 Mg/Ml 2 Ml Vial) 4 mg IV Q6H PRN PRN Reason: Nausea And Vomiting Stop: 01/06/25 12:13 Last Admin: 12/07/24 12:32 Dose: 4 mg Oxycodone HCl (Oxycodone Hcl Ir 5 Mg Tab (Immediate Release)) 5 - 10 mg PO Q4H PRN PRN Reason: Pain or Pre PT Stop: 12/21/24 12:13 Sennosides (Senna 8.6 Mg Tab) 17.2 mg PO HS ANDREIA Stop: 01/06/25 20:59 Zinc Sulfate (Zinc Sulfate 220 Mg Capsule) 220 mg PO QPM ANDREIA Stop: 01/06/25 20:59 PG Care Time/CCT Total # of Minutes Spent Total Time Spent with Patient: Total time spent is greater than 50% in coordination of care (as documented) at patient's floor/unit and/or counseling patient: Coding Level of Care Code 84564 INT INP/OBS CARE 3/75MIN Diagnoses PEA (Pulseless electrical activity) I46.9 Acute respiratory failure J96.00 Paroxysmal atrial fibrillation I48.0
[2024-12-07] MEDS: ACETAMINOPHEN 1000 MG/100 ML IV IV ONE (12:16)
[2024-12-07] MEDS: ONDANSETRON INJ 2 MG/ML 2 ML VIAL IV PRN (12:32)
--- NOTE | 2024-12-07 12:32 | Critical Care Consultation ---
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 The patient had a PEA arrest in the PACU post operatively likley due to hypoxia with ROSC. PEA Cardiac arrest with ROSC likely related to hypoxia -Patient had ACLS for 5 minutes. -Patient hemodynamically stable. Monitor. DVT/Pulmonary embolism -Continue Eliquis. Atrial Fibrillation likely stress induced -Patient had an episode post ROSC of atrial fibrillation -Patient spontaneously cardioverted and is Sinus Rhythm upon arrival to the ICU. -Cardiology consulted. Acute respiratory failure likely related to narcotics and anaesthetic agents -Patient having apneic episodes with episodes of hypoxia. -Bipap placed 21% 10/5 with RR12 -CXR showed no pneumothorax with left lower lobe opacity possible atelectasis v. possible aspiration. -Maintain SpO2 > 92% Thank you for allowing us to participate in this patients care. Please reach out if you have questions or concerns. Supervising Physician Co-Signing Physician Notes I saw and evaluated the patient with NAINA Márquez, and agree with findings and plan as documented in the note. 64-year-old female who came to the hospital to have total hip arthroplasty. Patient had a PEA arrest in the PACU which was bradycardic and then cardiac arrest She was intubated briefly in the PACU and then extubated Sent to ICU for further care. Chest x-ray post arrest did not show any rib fractures, no pneumothorax, atelectasis appreciated in the left lower lobe, increased cardiac silhouette. No clear pulmonary infiltrate EKG postarrest just showed sinus tachycardia with some ST depression on the lateral leads and A-fib RVR 2D echo 12/07/2024: EF 60-65%, mild concentric LVH, RV normal in size and function She had gotten fentanyl 200 mcg in the PACU. When I examined the patient patient was still under the effect of sedation. She was on BiPAP 5/5, interim tidal volume was in the 200s, increase it to 8/8 and a tidal volume picked up. She was saturating 97% on 21% FiO2. As per the was at bedside patient does snore at night significantly such that he sleeps in the other room because of that I did examine the patient later on during the day and she seemed to be neurologically intact. Constitutional: No acute distress HEENT: EOMI, PERRLA Respiratory system: Good air entry bilaterally, no wheeze, no rhonchi, minimal crackles bilateral lower lobe CVS: S1-S2 positive, no murmurs or gallops Abdomen: Soft, nontender, nondistended, positive bowel sounds x4 Extremities: +2 pulses bilaterally radialis/ dorsalis pedis, no cyanosis, no edema Neuro: Awake alert oriented x3, cranial nerves II to XII grossly intact, right hip dressing in place with no hematoma Psych: Normal mood and affect G/U: Positive Almonte --Prophylaxis VTE: IPC, Eliquis to be started tomorrow GI: Pepcid Lines: Peripheral Diet: Cardiac Plan: Strict In-N-Out para continue with BiPAP nightly and as needed shortness of breath Would recommend to keep oxygen saturation between 90-92% Would recommend outpatient polysomnography All questions inquiries of the patient's as well as patient were answered in depth I have personally spent 38 minutes of critical care time in the direct management of this patient. This is a life/limb threatening event. This includes time spent evaluating patient, direct bedside care, chart review, placing orders, interpretation of diagnostic studies, discussion with consultants, patient, and family members, as well as other required patient management activities. This time is exclusive of all separately billable procedures, and teaching time and separate from and in addition to any other critical care service time. Please note the above document was generated using voice recognition software. It may contain grammatical, syntax or spelling errors. History of Present Illness Reason for Consultation: PEA arrest with ROSC s/p right total hip arthroplasty. Attending Physician: Preet Clancy MD History of Present Illness Wen Mustafa is a 64-year-old female with past medical history of Guillain-Bruni syndrome in 2015 requiring a tracheotomy for 6 weeks, cervical spine stenosis, osteoarthritis, GERD, stress incontinence, and DVT in 2015 during her treatment for Guillain-Bruni; who presented to [facility] on 12/07/2024 for a planned right total hip arthroplasty. Per report the procedure went well without complication. She was extubated post operatively and brought to the PACU. Patient had significant pain while in PACU and received escalating narcotic doses to include fentanyl and Dilaudid. Unfortunately, she became lethargic, apneic, and hypoxic. She became bradycardic to the 40's and was believed to be in PEA arrest. The patient had ACLS performed for approximately 5 minutes with ROSC. The patient was reintubated during the resuscitation. The patient was watched in the PACU and was extubated again. She was able to follow commands, respond appropriately, and was hemodynamically stable but remained lethargic. The patient was brought to the ICU for continued evaluation and management of PEA arrest secondary to hypoxia with ROSC. Allergies Allergy/AdvReac Type Severity Reaction Status Date / Time esomeprazole [From Nexium] Allergy Unknown unsure of Verified 12/07/24 05:45 reaction "wasn't serious" Home Medications Medication Instructions Recorded Confirmed Type Collagen Powder 1 ea PO QAM 10/25/24 12/07/24 History Lactobacillus acidophilus 10 10,000 mmu cells PO QAM 10/25/24 12/07/24 History billion cell capsule (Probiotic) acetaminophen 650 mg 650 mg PO Q12H PRN Pain 10/25/24 12/07/24 History tablet,extended release ascorbic acid (vitamin C) 1,000 mg 1,000 mg PO QAM 10/25/24 12/07/24 History tablet (Vitamin C) cholecalciferol (vitamin D3) 50 50 mcg PO QPM 10/25/24 12/07/24 History mcg (2,000 unit) tablet (Vitamin D3) cyanocobalamin (vitamin B-12) 5,000 mcg PO QPM 10/25/24 12/07/24 History 5,000 mcg capsule gabapentin 300 mg capsule 300 mg PO BID 10/25/24 12/07/24 History ibuprofen 200 mg tablet 400 mg PO Q8H PRN Pain 10/25/24 12/07/24 History magnesium oxide 400 mg PO HS 10/25/24 12/07/24 History zinc 50 mg tablet 50 mg PO QPM 10/25/24 12/07/24 History Patient History Medical History (Updated 12/07/24 @ 18:05 by Slade Aguiar MD) Nerve damage left lower extremity-occasional falls-denies any recent falls-ambulates with walking pole or walker for longer ambulation Muscle weakness "generalized all over" Hx of vertigo Cervical spinal stenosis Osteoarthritis Urinary urgency Urinary, incontinence, stress female Hx of gastroesophageal reflux (GERD) controlled, stable per pt Hx of melanoma of skin s/p excision Neuropathy Post traumatic stress disorder Hx of deep venous thrombosis (~2014) right arm, bilat legs, 2014 while being tx for Guilain Bruni "bedrest" 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 Treated at [place] then tx to [place] for 4 weeks in a coma, then to rehab. denies pulmonology complications/limitations now Surgical History (Updated 12/07/24 @ 08:55 by Preet Clancy MD) History of anesthesia reaction novocaine given for dental procedure>increased vertigo (at time of procedure already had vertigo) [place] teeth removed Hx of tracheostomy ? details>in place for 6 weeks while being tx in 2014 [facility] Family History Other No family history of adverse response to anesthesia Social History Smoking Status: Never smoker Second Hand Exposure: No; Do You Dip or Chew Tobacco: No; Hx Alcohol Use: No Preferred Language: Romansh Bread Racker Required: No Beliefs That Will Affect Care: None Current Living Situation: Spouse Feels Safe at Home: Yes Safety Concerns: Feels Safe At This Time Assistive Devices: Contacts, Glasses and Walker Review of Systems 2 Review of Systems: All systems reviewed & are unremarkable except as noted in HPI & below Physical Exam 2 Physical Exam: VITALS: Reviewed. WEIGHT/BMI reviewed. GEN: Stated age appearing, well-developed, NAD. PSYCH: Good Judgment. AOx3. HEENT -Head: NC/AT; -Eyes: PERRL, EOMI. No discharge or redn ess; -Ears: External ears are normal. -Nose: Normal nares. NECK: Supple, with no masses. CV: RRR, no m/r/g. LUNGS: CTAB, no w/r/c. ABD: Soft, NT/ND, NBS, no masses or organomegaly. : Almonte drainage yellow clear urine. SKIN: Warm, well perfused. No skin rashes or abnormal lesions. MSK: No deformities. Right hip arthroplasty site without hematoma or drainage EXT: No clubbing, cyanosis, or edema. NEURO: Generalized weakness 3/5 all extremities. No focal deficits. lethargic but arouses to stim/voice. Follows commands. Results & Data Results & Data Vital Signs (Past 12 Hours) Vital Signs Temp Pulse Pulse Pulse Resp BP BP 12/07/24 12:15 99/67 L 12/07/24 12:12 64 21 12/07/24 12:00 12/07/24 12:00 109/75 12/07/24 12:00 109/75 12/07/24 11:58 111/72 12/07/24 11:58 111/72 12/07/24 11:58 111/72 12/07/24 11:57 69 20 12/07/24 11:30 36.1 C L 64 15 108/68 12/07/24 11:20 36.1 C L 72 15 104/72 12/07/24 11:10 64 15 93/65 L 12/07/24 11:00 67 15 123/85 12/07/24 10:50 58 L 15 108/72 12/07/24 10:40 60 18 128/76 12/07/24 10:30 96 H 109/82 12/07/24 10:20 84 94/65 L 12/07/24 10:11 103 H 111/71 12/07/24 10:10 126 H 170/87 H 12/07/24 10:06 138 H 170/87 H 12/07/24 10:00 126 H 139/119 H 12/07/24 09:52 128 H 190/113 H 12/07/24 09:50 151 H 12/07/24 09:40 67 18 121/69 12/07/24 09:35 69 18 130/77 12/07/24 09:25 74 18 137/84 12/07/24 09:15 63 15 122/65 12/07/24 09:05 68 15 138/82 12/07/24 08:59 36.3 C L 76 15 139/83 12/07/24 05:20 36.8 C 75 18 147/90 H Pulse Ox O2 Del Method O2 Flow Rate 12/07/24 12:15 12/07/24 12:12 97 3 12/07/24 12:00 96 Oxymask 4 12/07/24 12:00 12/07/24 12:00 12/07/24 11:58 12/07/24 11:58 12/07/24 11:58 12/07/24 11:57 12/07/24 11:30 95 Oxymask 5 12/07/24 11:20 97 Oxymask 5 12/07/24 11:10 97 Oxymask 5 12/07/24 11:00 97 Oxymask 7 12/07/24 10:50 96 Oxymask 7 12/07/24 10:40 98 Oxymask 7 12/07/24 10:30 12/07/24 10:20 12/07/24 10:11 12/07/24 10:10 12/07/24 10:06 12/07/24 10:00 12/07/24 09:52 12/07/24 09:50 96 Oxymask 5 12/07/24 09:40 96 Oxymask 5 12/07/24 09:35 96 Oxymask 5 12/07/24 09:25 96 Oxymask 5 12/07/24 09:15 96 Oxymask 5 12/07/24 09:05 98 Oxymask 8 12/07/24 08:59 94 Oxymask 8 12/07/24 05:20 94 Room Air Laboratory Results 12/07/24 16:48 12/07/24 16:48 Critical Care Results & Data Vital Signs (Past 12 Hours) Vital Signs Temp Pulse Pulse Pulse Resp BP BP 12/07/24 12:15 99/67 L 12/07/24 12:12 64 21 12/07/24 12:00 12/07/24 12:00 109/75 12/07/24 12:00 109/75 12/07/24 11:58 111/72 12/07/24 11:58 111/72 12/07/24 11:58 111/72 12/07/24 11:57 69 20 12/07/24 11:30 36.1 C L 64 15 108/68 12/07/24 11:20 36.1 C L 72 15 104/72 12/07/24 11:10 64 15 93/65 L 12/07/24 11:00 67 15 123/85 12/07/24 10:50 58 L 15 108/72 12/07/24 10:40 60 18 128/76 12/07/24 10:30 96 H 109/82 12/07/24 10:20 84 94/65 L 12/07/24 10:11 103 H 111/71 12/07/24 10:10 126 H 170/87 H 12/07/24 10:06 138 H 170/87 H 12/07/24 10:00 126 H 139/119 H 12/07/24 09:52 128 H 190/113 H 12/07/24 09:50 151 H 12/07/24 09:40 67 18 121/69 12/07/24 09:35 69 18 130/77 12/07/24 09:25 74 18 137/84 12/07/24 09:15 63 15 122/65 12/07/24 09:05 68 15 138/82 12/07/24 08:59 36.3 C L 76 15 139/83 12/07/24 05:20 36.8 C 75 18 147/90 H Pulse Ox O2 Del Method O2 Flow Rate 12/07/24 12:15 12/07/24 12:12 97 3 12/07/24 12:00 96 Oxymask 4 12/07/24 12:00 12/07/24 12:00 12/07/24 11:58 12/07/24 11:58 12/07/24 11:58 12/07/24 11:57 12/07/24 11:30 95 Oxymask 5 12/07/24 11:20 97 Oxymask 5 12/07/24 11:10 97 Oxymask 5 12/07/24 11:00 97 Oxymask 7 12/07/24 10:50 96 Oxymask 7 12/07/24 10:40 98 Oxymask 7 12/07/24 10:30 12/07/24 10:20 12/07/24 10:11 12/07/24 10:10 12/07/24 10:06 12/07/24 10:00 12/07/24 09:52 12/07/24 09:50 96 Oxymask 5 12/07/24 09:40 96 Oxymask 5 12/07/24 09:35 96 Oxymask 5 12/07/24 09:25 96 Oxymask 5 12/07/24 09:15 96 Oxymask 5 12/07/24 09:05 98 Oxymask 8 12/07/24 08:59 94 Oxymask 8 12/07/24 05:20 94 Room Air Lab & Micro Results (Past 24 Hours) 2 RBC 4.22 M/uL (4.20-5.40) 12/07/24 WBC 9.75 K/ul (4.8-10.8) 12/07/24 Hgb 11.9 g/dl (12.0-16.0) L 12/07/24 Hct 36.6 % (37.0-47.0) L 12/07/24 MCV 86.7 fL (80.0-100.0) 12/07/24 MCH 28.2 pg (25.0-34.0) 12/07/24 MCHC 32.5 g/dL (32.0-36.0) 12/07/24 RDW Standard Deviation 43.8 fL (36.4-46.3) 12/07/24 RDW Coefficient of Variation 14.0 % (11.5-14.5) 12/07/24 Plt Count 262 K/uL (130-400) 12/07/24 MPV 10.1 fL (9.4-12.4) 12/07/24 2 Na 139 mmol/L (136-145) 12/07/24 K 3.9 mmol/L (3.5-5.1) 12/07/24 Cl 106 mmol/L (98-107) 12/07/24 CO2 26 mmol/L (21-32) 12/07/24 Anion Gap 7 (3-11) 12/07/24 BUN 12 mg/dl (6-23) 12/07/24 Creatinine 0.62 mg/dl (0.6-1.2) 12/07/24 BUN/Creatinine Ratio 19.4 (10-20) 12/07/24 Glu 156 mg/dl (70-99(Fasting)) H 12/07/24 Ca 8.0 mg/dl (8.6-10.3) L 12/07/24 2 Mg 1.8 mg/dl (1.7-2.4) 12/07/24 16:48 Calcium Level 8.0 mg/dl (8.6-10.3) L 12/07/24 16:48 Diagnostic Findings (Past 24 Hours) Hip X-Ray 12/07/24 08:04 XR hip RT 1V HISTORY: 64 years-old Female RT BERNARDINO right hip arthroplasty COMPARISON: None TECHNIQUE: Lateral view of the right hip FINDINGS: Right hip arthroplasty demonstrates satisfactory alignment without acute fracture. Retractors are in place along with deep tissue air during this intraoperative study. IMPRESSION: Satisfactory alignment of the right hip arthroplasty. ACT 112: Negative or not required by law. The above report was generated using voice recognition software. It may contain grammatical, syntax or spelling errors. Electronically signed by: Uri Uriostegui M.D. 12/07/2024 8:26 AM Pelvis X-Ray 12/07/24 08:40 XR pelvis 1-2V routine HISTORY: 64 years-old Female S/P R BERNARDINO right hip arthroplasty COMPARISON: Right hip radiographs of same day TECHNIQUE: AP view the pelvis FINDINGS: Moderate osteoarthritis of the left hip. Satisfactory alignment of the right hip arthroplasty. Lateral skin ricky are present along with expected postoperative soft tissue swelling and deep tissue air. No acute fracture, malalignment or unexpected opaque foreign body. IMPRESSION: Satisfactory alignment of the right arthroplasty. ACT 112: Negative or not required by law. The above report was generated using voice recognition software. It may contain grammatical, syntax or spelling errors. Electronically signed by: Uri Uriostegui M.D. 12/07/2024 9:30 AM Chest X-Ray 12/07/24 10:08 SINGLE VIEW CHEST CLINICAL HISTORY: Cardiac arrest status post chest compressions. FINDINGS: An AP, portable, supine chest radiograph is compared to study dated 11/01/2024. The examination is degraded by portable technique and patient rotation. The cardiac silhouette appears enlarged. There is pulmonary vascular congestion. There are airspace opacities at the left lung base. No large pleural effusion or pneumothorax is seen. The skeletal structures are osteopenic. The bony thorax is grossly intact. There is gaseous distention of the stomach. IMPRESSION: 1. The cardiac silhouette appears enlarged and there is pulmonary vascular congestion. 2. Airspace opacities at the left lung base could represent atelectasis versus pneumonia/aspiration pneumonitis. Clinical correlation will be required. 3. No pneumothorax is seen. 4. There is significant gaseous distention of the stomach. ACT 112: Negative or not required by law. Electronically signed by: Otto Alvarez M.D. 12/07/2024 10:39 AM I & O Totals 24 Hours 12/06/24 12/07/24 12/08/24 06:59 06:59 06:59 Intake Total 0 / 0 1400 / 1400 Output Total 150 / 150 Balance 0 / 0 1250 / 1250 Cumulative 09/29/24 12:33 thru 12/07/24 11:15 Intake Total 1400 Output Total 150 Balance 1250 RT Ventilator Mngmt (Last Documented) Ventilator Ordered Settings Respiratory Rate 21 12/07/24 12:12 Ventilator - PT Measurements Respiratory Rate 21 Coding Level of Care Code 52553 CRITICAL CARE 1ST 30-74M Diagnoses Status post right hip replacement Z96.641 Osteoarthritis M19.90 Muscle weakness M62.81 Cardiac arrest I46.9
[2024-12-07] MEDS: SODIUM CHLORIDE 0.9% 1,000 ML IV SCH (12:33)
[2024-12-07] MEDS: TRANEXAMIC ACID 1,000 MG **IV Pre-op IV SCH (12:36)
[2024-12-07] MEDS: GABAPENTIN 300 MG CAP PO SCH (12:38)
[2024-12-07] MEDS ORDERED: GLUCOSE 40% GEL 15 GM TUBE PO PRN (12:50)
[2024-12-07] MEDS ORDERED: DEXTROSE 50% 50 ML SYRINGE IV PRN (12:50)
[2024-12-07] MEDS ORDERED: GLUCOSE 10 TAB/TUBE PO PRN (12:50)
[2024-12-07] MEDS ORDERED: CARBOHYDRATES FOR HYPOGLYCEMIA PO PRN (12:50)
[2024-12-07] MEDS ORDERED: GLUCAGON FOR INJ 1 MG VIAL SQ PRN (12:50)
[2024-12-07] MEDS: METOCLOPRAMIDE HCL INJ 5 MG/ML 2 ML VIAL IV PRN (13:09)
[2024-12-07] MEDS: KETOROLAC TROMETHAMINE 15 MG/ML VIAL IV SCH (13:09)
[2024-12-07] MEDS: INSULIN ASPART PER UNIT CHARGE SC SCH (13:21)
--- NOTE | 2024-12-07 13:42 | Orthopedic Consultation ---
Date of Consultation December 07, 2024 Orthopedic Consult Patient underwent elective right total hip replacement. Did well during the procedure however roughly an hour after the procedure had a respiratory cardiac event in the recovery room. Unclear etiology. Appropriate consultation has been obtained from cardiology machine bander and cellophaner and internal medicine. Presently she is in the intensive care unit in room #4. She is attended by her . He has been up to date and been informed of all of the decisions that have been occurring. Past medical past surgical history as noted in the H&P and in the previous record. New event is this cardiac respiratory event. Physical exam pertinent to orthopedics reveals all 4 extremities move upon command she is at her baseline neurologic function in all 4 extremities is with her chronic changes secondary to Guillain-Asher. Her right hip is located. The wound dressing is clean dry and intact. She has intact femoral and sciatic nerve functioning in the right lower extremity which is identical to preop. Postop x-rays look excellent. Assessment status post right total replacement. Postop course complicated by cardiac respiratory event. Appropriate workup is being rendered. Keeping /spouse informed. Communicated with ICU team. When appropriate she can be sitting in a chair or walking ambulating with a walker with appropriate hip precautions weightbearing as tolerated on the right lower extremity. Planning for inpatient rehab type facility was made preoperatively as it was suspected that she would require a fair amount of assistance based on the chronicity and debilitation from her Guillain-Asher syndrome. Anticoagulation can be initiated tomorrow 24 hours postop Eliquis or equivalent. Do not suggest using Lovenox as that increases wound drainage. Will follow daily.
[2024-12-07] MEDS: ACETAMINOPHEN 500 MG TAB PO SCH (14:16)
[2024-12-07] MEDS: dexAMETHasone 8 MG in SYRINGE 0 ML IV ONE (16:13)
[2024-12-07] MEDS: ASCORBIC ACID 500 MG TAB PO SCH (16:13)
[2024-12-07] MEDS: FERROUS GLUCONATE 324 MG TAB PO SCH (16:13)
--- NOTE | 2024-12-07 16:42 | XCELERA ---
[id number]
[2024-12-07 17:19] LABS: Hematocrit (blood only) 36.6 % (37.0-47.0); Hemoglobin 11.9 g/dl (12.0-16.0); Mean Corpuscular Hemoglobin 28.2 pg (25.0-34.0); Mean Corpuscular Volume 86.7 fL (80.0-100.0); Platelet Count 262 K/uL (130-400); RDW Standard Deviation 43.8 fL (36.4-46.3); Red Blood Count 4.22 M/uL (4.20-5.40); White Blood Count 9.75 K/ul (4.8-10.8)
[2024-12-07 17:35] LABS: Anion Gap 7.0 (3-11); Blood Urea Nitrogen 12.0 mg/dl (6-23); Calcium 8.0 mg/dl (8.6-10.3); Carbon Dioxide 26.0 mmol/L (21-32); Chloride 106.0 mmol/L (98-107); Creatinine Clr Calc Pharmacy 98.3 ml/min; Glucose 156.0 mg/dl (70-99(Fasting)); Magnesium 1.8 mg/dl (1.7-2.4); Potassium 3.9 mmol/L (3.5-5.1); Sodium 139.0 mmol/L (136-145)
--- NOTE | 2024-12-07 17:48 | Orthopedic Progress Note ---
Date of Service December 07, 2024 Assessment & Plan (1) Status post right hip replacement: Plan: The patient and her were educated regarding today's findings. Conservative care measures were discussed. She is currently in a normal sinus rhythm with a rate in the high 60s/low 70s. Oxygen saturation is 100% on room air. She will remain in her wedge pillow for protection of the hip. The patient states she normally has very restless legs and is constantly moving due to a feeling of stiffness. She understands that the wedge pillow is necessary. Her echo has been completed but no report is available at this time. Anticipate changing her dressing tomorrow to a Prevena wound VAC. Start PT/OT tomorrow. Discharge when I will be at the discretion of the hospitalist team. She is aware. Admission and Anticipated Discharge Date Admission Date: December 07, 2024 Subjective This 64-year-old female is seen today in ICU bed 104, and follow-up from her right total hip arthroplasty performed earlier today. She is sitting up in bed and is conversive. Her is at bedside. She states there is mild hip discomfort, but her worst complaint is nausea. She has already received Zofran and Reglan without much improvement. She is due for more Zofran in an hour. She denies any chest pain or shortness of breath at this point. No vomiting. No additional complaints. Physical Exam Physical Exam: General: Well-developed, well-nourished, middle-aged female, in no acute distress. Laying in bed. Alert and oriented. Conversive. Skin: Warm and dry with good turgor. Postsurgical dressing is in place on the right hip. Dressings are dry. Musculoskeletal: The patient is able to actively plantarflex and dorsiflex her ankles as well as flex her knees. This causes discomfort at her surgical site. Neurologic: Gross sensation is intact across both lower extremities by soft touch. Peripheral pulses are 2+. Results & Data Vital Signs (Past 12 Hours) Vital Signs Temp Pulse Pulse Resp BP BP Pulse Ox 12/07/24 14:35 116/69 12/07/24 14:33 35.0 C L 61 15 100 12/07/24 14:30 87/64 L 12/07/24 14:18 34.7 C L 70 28 H 97 12/07/24 14:15 97/70 L 12/07/24 14:00 101/68 12/07/24 14:00 101/68 12/07/24 13:45 91/67 L 12/07/24 13:45 91/67 L 12/07/24 13:45 91/67 L 12/07/24 13:42 34.2 C L 64 16 95 12/07/24 13:36 34.2 C L 62 12 95 12/07/24 13:30 100/72 12/07/24 13:27 34.1 C L 71 27 H 82 L 12/07/24 13:21 34.1 C L 59 L 14 97 12/07/24 13:18 34.1 C L 63 15 99 12/07/24 13:18 67 22 99 12/07/24 13:16 100/74 12/07/24 13:09 34.1 C L 71 28 H 98 12/07/24 13:01 113/69 12/07/24 13:01 113/69 12/07/24 13:01 113/69 12/07/24 13:00 34.1 C L 71 41 H 97 12/07/24 12:48 34.1 C L 66 42 H 98 12/07/24 12:45 118/75 12/07/24 12:45 118/75 12/07/24 12:45 118/75 12/07/24 12:45 118/75 12/07/24 12:45 118/75 12/07/24 12:30 96/62 L 12/07/24 12:30 96/62 L 12/07/24 12:30 96/62 L 12/07/24 12:15 99/67 L 12/07/24 12:12 64 21 97 12/07/24 12:00 12/07/24 12:00 96 12/07/24 12:00 109/75 12/07/24 12:00 109/75 12/07/24 11:58 111/72 12/07/24 11:58 111/72 12/07/24 11:58 111/72 12/07/24 11:57 69 20 12/07/24 11:30 36.1 C L 64 15 108/68 95 12/07/24 11:20 36.1 C L 72 15 104/72 97 12/07/24 11:10 64 15 93/65 L 97 12/07/24 11:00 67 15 123/85 97 12/07/24 10:50 58 L 15 108/72 96 12/07/24 10:40 60 18 128/76 98 12/07/24 10:30 96 H 109/82 12/07/24 10:20 84 94/65 L 12/07/24 10:11 103 H 111/71 12/07/24 10:10 126 H 170/87 H 12/07/24 10:06 138 H 170/87 H 12/07/24 10:00 126 H 139/119 H 12/07/24 09:52 128 H 190/113 H 12/07/24 09:50 151 H 96 12/07/24 09:40 67 18 121/69 96 12/07/24 09:35 69 18 130/77 96 12/07/24 09:25 74 18 137/84 96 12/07/24 09:15 63 15 122/65 96 12/07/24 09:05 68 15 138/82 98 12/07/24 08:59 36.3 C L 76 15 139/83 94 O2 Del Method O2 Flow Rate FiO2 12/07/24 14:35 12/07/24 14:33 BiPAP 12/07/24 14:30 12/07/24 14:18 12/07/24 14:15 12/07/24 14:00 12/07/24 14:00 12/07/24 13:45 12/07/24 13:45 12/07/24 13:45 12/07/24 13:42 12/07/24 13:36 12/07/24 13:30 12/07/24 13:27 12/07/24 13:21 12/07/24 13:18 12/07/24 13:18 21 12/07/24 13:16 12/07/24 13:09 12/07/24 13:01 12/07/24 13:01 12/07/24 13:01 12/07/24 13:00 12/07/24 12:48 12/07/24 12:45 12/07/24 12:45 12/07/24 12:45 12/07/24 12:45 12/07/24 12:45 12/07/24 12:30 12/07/24 12:30 12/07/24 12:30 12/07/24 12:15 12/07/24 12:12 3 12/07/24 12:00 Oxymask 4 12/07/24 12:00 Oxymask 4 12/07/24 12:00 12/07/24 12:00 12/07/24 11:58 12/07/24 11:58 12/07/24 11:58 12/07/24 11:57 12/07/24 11:30 Oxymask 5 12/07/24 11:20 Oxymask 5 12/07/24 11:10 Oxymask 5 12/07/24 11:00 Oxymask 7 12/07/24 10:50 Oxymask 7 12/07/24 10:40 Oxymask 7 12/07/24 10:30 12/07/24 10:20 12/07/24 10:11 12/07/24 10:10 12/07/24 10:06 12/07/24 10:00 12/07/24 09:52 12/07/24 09:50 Oxymask 5 12/07/24 09:40 Oxymask 5 12/07/24 09:35 Oxymask 5 12/07/24 09:25 Oxymask 5 12/07/24 09:15 Oxymask 5 12/07/24 09:05 Oxymask 8 12/07/24 08:59 Oxymask 8 Laboratory Results CBC obtained this afternoon shows a normal white count at 9.75. H&H of 11.9 and 36.6. Platelets normal at 262,000. Normal electrolytes. Normal BUN and creatinine. Glucose 156. Calcium 8.0. Magnesium normal at 1.8. TSH is pending.
[2024-12-07 17:50] LABS: Thyroid Stimulating Hormone 0.551 uIu/ml (0.300-4.500)
--- NOTE | 2024-12-07 18:05 | Hospitalist Progress Note ---
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 At that time she required a tracheostomy for 6 weeks. 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 She presented to [facility] for planned total right hip arthroplasty and developed PEA in the PACU with a brief run of atrial fibrillation after obtaining ROSC patient remains in normal sinus rhythm she has no remembrance of the event she has no cognitive decline #PEA/respiratory arrest. Patient notes a sensitivity to opiate therapy. Currently will monitor in the ICU overnight continue to watch cardiac rhythm for recurrence of atrial arrhythmia. Cardiac echocardiogram was performed with normal systolic function and no significant valvular or regional wall motion abnormalities. Cardiology consult is pending. Patient will have BiPAP available for nighttime sleepiness #Previous VTE patient remains on Eliquis and this abuse postoperatively for DVT prevention for hip. After discussion with primary service orthopedics they requested hospitalist take over as primary tending to help facilitate movement through the hospital stay and possible referral to rehab. Patient was transferred to my care today Admission and Anticipated Discharge Date Admission Date: December 07, 2024 Subjective This 64-year-old female is seen today in ICU patient had respiratory distress and PEA in the PACU following her right total hip arthroplasty performed 12/07/2024. She is sitting up in bed and is conversive. Her is at bedside. She states there is mild hip discomfort, patient states that she has some persistent issues from her previous Guillain-Asher including weakness of her left leg and right arm patient is suffering from mild nausea. Physical Exam Physical Exam: Pleasant awake and alert conversant no focal deficits with exception of minor slight to see weakness of her left leg. Card exam is regular without murmurs clicks rubs or gallops lungs are clear without wheezes or crackles abdomen is NABS soft and nontender. She has good distal pulses bilaterally in both feet Results & Data Results & Data Vital Signs (Past 12 Hours) Vital Signs Temp Pulse Pulse Resp BP BP Pulse Ox 12/07/24 16:00 72 12/07/24 14:35 116/69 12/07/24 14:33 95.0 F L 61 15 100 08/27/25 14:30 87/64 L 12/07/24 14:18 94.5 F L 70 28 H 97 12/07/24 14:15 97/70 L 12/07/24 14:00 101/68 12/07/24 14:00 101/68 12/07/24 13:45 91/67 L 12/07/24 13:45 91/67 L 12/07/24 13:45 91/67 L 12/07/24 13:42 93.6 F L 64 16 95 12/07/24 13:36 93.6 F L 62 12 95 12/07/24 13:30 100/72 12/07/24 13:27 93.4 F L 71 27 H 82 L 12/07/24 13:21 93.4 F L 59 L 14 97 12/07/24 13:18 93.4 F L 63 15 99 12/07/24 13:18 67 22 99 12/07/24 13:16 100/74 12/07/24 13:09 93.4 F L 71 28 H 98 12/07/24 13:01 113/69 12/07/24 13:01 113/69 12/07/24 13:01 113/69 12/07/24 13:00 93.4 F L 71 41 H 97 12/07/24 12:48 93.4 F L 66 42 H 98 12/07/24 12:45 118/75 12/07/24 12:45 118/75 12/07/24 12:45 118/75 12/07/24 12:45 118/75 12/07/24 12:45 118/75 12/07/24 12:30 96/62 L 12/07/24 12:30 96/62 L 12/07/24 12:30 96/62 L 12/07/24 12:15 99/67 L 12/07/24 12:12 64 21 97 12/07/24 12:00 12/07/24 12:00 96 12/07/24 12:00 109/75 12/07/24 12:00 109/75 12/07/24 11:58 111/72 12/07/24 11:58 111/72 12/07/24 11:58 111/72 12/07/24 11:57 69 20 12/07/24 11:30 97.0 F L 64 15 108/68 95 12/07/24 11:20 97.0 F L 72 15 104/72 97 12/07/24 11:10 64 15 93/65 L 97 12/07/24 11:00 67 15 123/85 97 12/07/24 10:50 58 L 15 108/72 96 12/07/24 10:40 60 18 128/76 98 12/07/24 10:30 96 H 109/82 12/07/24 10:20 84 94/65 L 12/07/24 10:11 103 H 111/71 12/07/24 10:10 126 H 170/87 H 12/07/24 10:06 138 H 170/87 H 12/07/24 10:00 126 H 139/119 H 12/07/24 09:52 128 H 190/113 H 12/07/24 09:50 151 H 96 12/07/24 09:40 67 18 121/69 96 12/07/24 09:35 69 18 130/77 96 12/07/24 09:25 74 18 137/84 96 12/07/24 09:15 63 15 122/65 96 12/07/24 09:05 68 15 138/82 98 12/07/24 08:59 97.3 F L 76 15 139/83 94 O2 Del Method O2 Flow Rate FiO2 12/07/24 16:00 12/07/24 14:35 12/07/24 14:33 BiPAP 12/07/24 14:30 12/07/24 14:18 12/07/24 14:15 12/07/24 14:00 12/07/24 14:00 12/07/24 13:45 12/07/24 13:45 12/07/24 13:45 12/07/24 13:42 12/07/24 13:36 12/07/24 13:30 12/07/24 13:27 12/07/24 13:21 12/07/24 13:18 12/07/24 13:18 21 12/07/24 13:16 12/07/24 13:09 12/07/24 13:01 12/07/24 13:01 12/07/24 13:01 12/07/24 13:00 12/07/24 12:48 12/07/24 12:45 12/07/24 12:45 12/07/24 12:45 12/07/24 12:45 12/07/24 12:45 12/07/24 12:30 12/07/24 12:30 12/07/24 12:30 12/07/24 12:15 12/07/24 12:12 3 12/07/24 12:00 Oxymask 4 12/07/24 12:00 Oxymask 4 12/07/24 12:00 12/07/24 12:00 12/07/24 11:58 12/07/24 11:58 12/07/24 11:58 12/07/24 11:57 12/07/24 11:30 Oxymask 5 12/07/24 11:20 Oxymask 5 12/07/24 11:10 Oxymask 5 12/07/24 11:00 Oxymask 7 12/07/24 10:50 Oxymask 7 12/07/24 10:40 Oxymask 7 12/07/24 10:30 12/07/24 10:20 12/07/24 10:11 12/07/24 10:10 12/07/24 10:06 12/07/24 10:00 12/07/24 09:52 12/07/24 09:50 Oxymask 5 12/07/24 09:40 Oxymask 5 12/07/24 09:35 Oxymask 5 12/07/24 09:25 Oxymask 5 12/07/24 09:15 Oxymask 5 12/07/24 09:05 Oxymask 8 12/07/24 08:59 Oxymask 8 Laboratory Results Reviewed CBC reviewed chemistry discussed the case with orthopedic primary service and intensive care unit provider PG Care Time/CCT Total # of Minutes Spent Total Time Spent with Patient: Total time spent is greater than 50% in coordination of care (as documented) at patient's floor/unit and/or counseling patient: Coding Level of Care Code 03851 SUB INP/OBS CARE 2/35MIN Diagnoses PEA (Pulseless electrical activity) I46.9 Guillain Asher syndrome G61.0 Afib I48.91
[2024-12-07] MEDS: MAGNESIUM OXIDE 400 MG TAB PO SCH (20:50)
[2024-12-07] MEDS: ZINC SULFATE 220 MG CAPSULE PO SCH (20:50)
[2024-12-07] MEDS: SENNA 8.6 MG TAB PO SCH (20:50)
[2024-12-07] MEDS: DOCUSATE SODIUM 100 MG CAP PO SCH (20:50)
[2024-12-07] MEDS: FAMOTIDINE 40 MG TABLET PO SCH (20:51)
[2024-12-08 04:48] LABS: Hematocrit (blood only) 32.9 % (37.0-47.0); Hemoglobin 10.8 g/dl (12.0-16.0); Immature Granulocytes # (auto) 0.03 K/uL (0.01-0.20); Immature Granulocytes % (auto) 0.4 %; Mean Corpuscular Hemoglobin 29.0 pg (25.0-34.0); Mean Corpuscular Volume 88.2 fL (80.0-100.0); Platelet Count 247 K/uL (130-400); RDW Standard Deviation 45.2 fL (36.4-46.3); Red Blood Count 3.73 M/uL (4.20-5.40); White Blood Count 8.46 K/ul (4.8-10.8)
[2024-12-08 05:05] LABS: Anion Gap 4.0 (3-11); Blood Urea Nitrogen 11.0 mg/dl (6-23); Calcium 8.0 mg/dl (8.6-10.3); Carbon Dioxide 27.0 mmol/L (21-32); Chloride 109.0 mmol/L (98-107); Creatinine Clr Calc Pharmacy 97.2 ml/min; Glucose 145.0 mg/dl (70-99(Fasting)); Magnesium 2.0 mg/dl (1.7-2.4); Potassium 4.4 mmol/L (3.5-5.1); Sodium 140.0 mmol/L (136-145)
--- NOTE | 2024-12-08 07:01 | Orthopedic Progress Note ---
Date of Service December 08, 2024 Assessment & Plan Admission and Anticipated Discharge Date Admission Date: December 07, 2024 Orthopedic Progress Note Postop day #1 status post right total hip replacement. Postop course complicated by some cardio respiratory event. Being evaluated appropriately by client service coordinator professor of sociology and hospitalist. At this point in time she is resting comfortably in bed. She denies chest pain shortness of breath fever chills nausea vomiting or headache. She feels like she is in her usual state of good health with her baseline Guillain-Asher. Wound dressing clean dry and intact neurovascular check right lower extremity reveals intact sciatic nerve and femoral nerve functioning. Hip located supple motion. Wound dressing clean dry and intact. Calves nontender. A.m. labs reveal stable hematocrit at 32 and change. Remaining labs without any major issues. Assessment overall doing reasonably well. Await final cardiology and client service coordinator recommendations. Hospitalist recommendations. This point in time BRYON Almonte order PT OT try to get her movement. Await final decision on transfer to floor. Updated physicians trading assistant with wound care.
[2024-12-08] MEDS: dexAMETHasone 10 MG in SYRINGE 0 ML IV SCH (07:54)
[2024-12-08] MEDS: MULTIVITAMIN TAB PO SCH (07:56)
[2024-12-08] MEDS: APIXABAN 2.5 MG TAB PO SCH (07:57)
--- NOTE | 2024-12-08 08:17 | Critical Care Progress Note ---
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 The patient had a PEA arrest in the PACU post operatively likley due to hypoxia with ROSC. PEA Cardiac arrest with ROSC likely related to hypoxia -Patient had ACLS for 5 minutes. -Patient hemodynamically stable. Monitor. DVT/Pulmonary embolism -Continue Eliquis. Atrial Fibrillation likely stress induced -Patient had an episode post ROSC of atrial fibrillation -Patient spontaneously cardioverted and is Sinus Rhythm upon arrival to the ICU. -Cardiology consulted. Likely stress related. Will recommend outpatient monitor to further look for PAF. Acute respiratory failure likely related to narcotics and anaesthetic agents -Patient having apneic episodes with episodes of hypoxia. -Off Bipap this am and on room air this am -CXR showed no pneumothorax with left lower lobe opacity possible atelectasis v. possible aspiration. -Maintain SpO2 > 92% Right hip total arthroplasty -PT/OT -Rest of management per ortho. Thank you for allowing us to participate in this patients care. Please reach out if you have questions or concerns. Admission and Anticipated Discharge Date Admission Date: December 07, 2024 Supervising Physician Co-Signing Physician Notes I saw and evaluated the patient with NAINA Márquez, and agree with findings and plan as documented in the note. 2D echo 12/07/2024: EF 60-65%, mild concentric LVH, RV normal in size and function Patient seen and examined at bedside. No acute distress, no adverse events overnight Still complaining of some chest discomfort when she is she is coughing. She was saturating 98% on room air. Systolic blood pressure was in the 130s with heart rate in the 70s Denied any nausea or vomiting No difficulty swallowing. Finished her breakfast without any issues No dizziness, no headache Constitutional: No acute distress HEENT: EOMI, PERRLA Respiratory system: Good air entry bilaterally, no wheeze, no rhonchi, minimal crackles bilateral lower lobe CVS: S1-S2 positive, no murmurs or gallops Abdomen: Soft, nontender, nondistended, positive bowel sounds x4 Extremities: +2 pulses bilaterally radialis/ dorsalis pedis, no cyanosis, no edema Neuro: Awake alert oriented x3, cranial nerves II to XII grossly intact, right hip dressing in place with no hematoma Psych: Normal mood and affect G/U: Positive Almonte --Prophylaxis VTE: Eliquis GI: Pepcid Lines: Peripheral Diet: Cardiac Plan: In/out: +1.3 L, urine output 2140 Minimal drop in hemoglobin possibly secondary to being +1.3 L, continue to trend Eliquis has been restarted The patient hemodynamically stable to be downgraded to medical floor PT OT has been consulted Please note the above document was generated using voice recognition software. It may contain grammatical, syntax or spelling errors.Any formal questions or concerns about the content, text or information contained within the body of this dictation should be directly addressed to the provider for clarification. Subjective "I feel much better." "I have a little pain this am but my nausea is gone." Patient off Bipap this am and on room air with SpO2 with SpO2 97%. Patient in sinus rhythm and hemodynamically stable. Will plan for downgrade this am. Review of Systems 2 Review of Systems: All systems reviewed & are unremarkable except as noted in HPI & below Physical Exam 2 Physical Exam: VITALS: Reviewed. WEIGHT/BMI reviewed. GEN: Stated age appearing, well-developed, NAD. PSYCH: Good Judgment. AOx3. HEENT -Head: NC/AT; -Eyes: PERRL, EOMI. No discharge or redn ess; -Ears: External ears are normal. -Nose: Normal nares. NECK: Supple, with no masses. CV: RRR, no m/r/g. LUNGS: CTAB, no w/r/c. ABD: Soft, NT/ND, NBS, no masses or organomegaly. : Almonte drainage yellow clear urine. SKIN: Warm, well perfused. No skin rashes or abnormal lesions. MSK: No deformities. Right hip arthroplasty site without hematoma or drainage EXT: No clubbing, cyanosis, or edema. NEURO: Generalized weakness 3/5 all extremities. No focal deficits. Follows commands. Results & Data Results & Data Vital Signs (Past 12 Hours) Vital Signs Temp Pulse Resp BP Pulse Ox 12/08/24 00:00 36.9 C 73 16 94 12/08/24 00:00 116/62 12/08/24 00:00 71 12/07/24 23:33 36.9 C 76 12 93 12/07/24 23:09 36.9 C 71 14 94 12/07/24 23:00 110/64 12/07/24 23:00 110/64 12/07/24 22:54 36.8 C 73 12 93 12/07/24 22:30 36.8 C 70 13 93 12/07/24 22:06 36.8 C 75 15 96 12/07/24 22:00 121/69 12/07/24 21:42 36.8 C 72 16 94 12/07/24 21:12 36.8 C 73 17 96 12/07/24 20:30 36.8 C 86 14 96 Laboratory Results 12/08/24 04:13 12/08/24 04:13 Abnormal Lab Results 12/07/24 12/07/24 12/07/24 12:10 12:46 16:48 WBC 9.75 RBC 4.22 Hgb 11.9 L Hct 36.6 L MCV 86.7 MCH 28.2 MCHC 32.5 RDW Std Deviation 43.8 RDW Coeff of Manda 14.0 Plt Count 262 MPV 10.1 Immature Gran % (Auto) Neut % (Auto) Lymph % (Auto) Wolfe % (Auto) Eos % (Auto) Baso % (Auto) Neut # (Auto) Lymph # (Auto) Wolfe # (Auto) Eos # (Auto) Baso # (Auto) Immature Gran # (Auto) Sodium 139 Potassium 3.9 Chloride 106 Carbon Dioxide 26 Anion Gap 7 BUN 12 Creatinine 0.62 Est Cr Clr Drug Dosing 98.3 eGFR 100.00 BUN/Creatinine Ratio 19.4 Glucose 156 H POC Glucose 195 H Calcium 8.0 L Phosphorus Magnesium 1.8 TSH 0.551 Nasal Screen MRSA (PCR) Negative 12/07/24 12/08/24 12/08/24 18:05 00:12 04:13 WBC 8.46 RBC 3.73 L Hgb 10.8 L Hct 32.9 L MCV 88.2 MCH 29.0 MCHC 32.8 RDW Std Deviation 45.2 RDW Coeff of Manda 14.2 Plt Count 247 MPV 10.3 Immature Gran % (Auto) 0.4 Neut % (Auto) 80.1 Lymph % (Auto) 10.9 Wolfe % (Auto) 8.4 Eos % (Auto) 0.1 Baso % (Auto) 0.1 Neut # (Auto) 6.78 H Lymph # (Auto) 0.92 L Wolfe # (Auto) 0.71 H Eos # (Auto) 0.01 Baso # (Auto) 0.01 Immature Gran # (Auto) 0.03 Sodium 140 Potassium 4.4 Chloride 109 H Carbon Dioxide 27 Anion Gap 4 BUN 11 Creatinine 0.64 Est Cr Clr Drug Dosing 97.2 eGFR 99.24 BUN/Creatinine Ratio 17.2 Glucose 145 H POC Glucose 139 H 144 H Calcium 8.0 L Phosphorus 3.6 Magnesium 2.0 TSH Nasal Screen MRSA (PCR) 12/08/24 07:13 WBC RBC Hgb Hct MCV MCH MCHC RDW Std Deviation RDW Coeff of Manda Plt Count MPV Immature Gran % (Auto) Neut % (Auto) Lymph % (Auto) Wolfe % (Auto) Eos % (Auto) Baso % (Auto) Neut # (Auto) Lymph # (Auto) Wolfe # (Auto) Eos # (Auto) Baso # (Auto) Immature Gran # (Auto) Sodium Potassium Chloride Carbon Dioxide Anion Gap BUN Creatinine Est Cr Clr Drug Dosing eGFR BUN/Creatinine Ratio Glucose POC Glucose 81 Calcium Phosphorus Magnesium TSH Nasal Screen MRSA (PCR) Diagnostic Findings Hip X-Ray 12/07/24 08:04 XR hip RT 1V HISTORY: 64 years-old Female RT BERNARDINO right hip arthroplasty COMPARISON: None TECHNIQUE: Lateral view of the right hip FINDINGS: Right hip arthroplasty demonstrates satisfactory alignment without acute fracture. Retractors are in place along with deep tissue air during this intraoperative study. IMPRESSION: Satisfactory alignment of the right hip arthroplasty. ACT 112: Negative or not required by law. The above report was generated using voice recognition software. It may contain grammatical, syntax or spelling errors. Electronically signed by: Uri Uriostegui M.D. 12/07/2024 8:26 AM Pelvis X-Ray 12/07/24 08:40 XR pelvis 1-2V routine HISTORY: 64 years-old Female S/P R BERNARDINO right hip arthroplasty COMPARISON: Right hip radiographs of same day TECHNIQUE: AP view the pelvis FINDINGS: Moderate osteoarthritis of the left hip. Satisfactory alignment of the right hip arthroplasty. Lateral skin ricky are present along with expected postoperative soft tissue swelling and deep tissue air. No acute fracture, malalignment or unexpected opaque foreign body. IMPRESSION: Satisfactory alignment of the right arthroplasty. ACT 112: Negative or not required by law. The above report was generated using voice recognition software. It may contain grammatical, syntax or spelling errors. Electronically signed by: Uri Uriostegui M.D. 12/07/2024 9:30 AM Chest X-Ray 12/07/24 10:08 SINGLE VIEW CHEST CLINICAL HISTORY: Cardiac arrest status post chest compressions. FINDINGS: An AP, portable, supine chest radiograph is compared to study dated 11/01/2024. The examination is degraded by portable technique and patient rotation. The cardiac silhouette appears enlarged. There is pulmonary vascular congestion. There are airspace opacities at the left lung base. No large pleural effusion or pneumothorax is seen. The skeletal structures are osteopenic. The bony thorax is grossly intact. There is gaseous distention of the stomach. IMPRESSION: 1. The cardiac silhouette appears enlarged and there is pulmonary vascular congestion. 2. Airspace opacities at the left lung base could represent atelectasis versus pneumonia/aspiration pneumonitis. Clinical correlation will be required. 3. No pneumothorax is seen. 4. There is significant gaseous distention of the stomach. ACT 112: Negative or not required by law. Electronically signed by: Otto Alvarez M.D. 12/07/2024 10:39 AM Coding Level of Care Code 91521 SUB INP/OBS CARE 2/35MIN Diagnoses Status post right hip replacement Z96.641 Osteoarthritis M19.90 Muscle weakness M62.81 Cardiac arrest I46.9
--- NOTE | 2024-12-08 09:08 | Cardiology Progress Note ---
Date of Service December 08, 2024 Assessment & Plan (1) PEA (Pulseless electrical activity): (2) Acute respiratory failure: (3) Paroxysmal atrial fibrillation: Plan ASSESSMENT/PLAN: 1. Respiratory arrest with PEA: Based on available information, event likely related to hypoxia following narcotics, which led to bradycardia. No further episodes. Now on room air. Unremarkable echo. No arrhythmia on monitor following PACU events. 2. Atrial fibrillation: Paroxysmal possibly lone A-fib in the setting of postoperative state and CPR following PEA arrest. Spontaneously converted after several minutes on 12/07/24. Likely due to her respiratory failure/PEA arrest and postoperative state. If this is the case, she would not require long-term anticoagulation therapy for stroke risk reduction. Continue telemetry. Recommend 30-day event monitor for recurrent A-fib. Will arrange through the cardiology office. If unremarkable, no further follow-up necessary from a cardiology standpoint. 3. Disposition: Cardiology will sign off at this time. Please call with any further questions or concerns. Pt care was communicated with Dr. Aguiar of the primary hospitalist service. Admission and Anticipated Discharge Date Admission Date: December 07, 2024 Subjective She denies angina, syncope, near syncope, shortness of breath, palpitations, edema, or bleeding. She has chest pain following chest compressions yesterday. She has mild hip pain postoperatively. Prior to her surgery on 12/07/2024, she denies any outpatient chest pain, synco pe, near syncope, shortness of breath, or palpitations. She was unaccompanied. Physical Exam Physical Exam: Gen.: No acute distress. Alert and oriented. Neck: No JVD. Cardiac: Regular. Normal S1-S2. No murmurs, rubs, or gallops. Pulmonary: Clear to auscultation bilaterally without wheezes, rales, or rhonchi. Abdomen: Soft, nontender, nondistended, with hypoactive bowel sounds. No bruits noted. Extremities: 2+ radial pulses bilaterally. 2+ posterior tibialis pulses bilaterally. No edema or cyanosis. Results & Data Vital Signs (Past 12 Hours) Vital Signs Temp Pulse Resp BP Pulse Ox O2 Del Method 12/08/24 08:00 134/65 12/08/24 08:00 134/65 12/08/24 08:00 37.4 C 74 17 96 12/08/24 08:00 Room Air 12/08/24 08:00 71 12/08/24 07:00 37.1 C 71 21 134/65 94 Room Air 12/08/24 00:00 36.9 C 73 16 94 12/08/24 00:00 116/62 12/08/24 00:00 71 12/07/24 23:33 36.9 C 76 12 93 12/07/24 23:09 36.9 C 71 14 94 12/07/24 23:00 110/64 12/07/24 23:00 110/64 12/07/24 22:54 36.8 C 73 12 93 12/07/24 22:30 36.8 C 70 13 93 12/07/24 22:06 36.8 C 75 15 96 12/07/24 22:00 121/69 12/07/24 21:42 36.8 C 72 16 94 12/07/24 21:12 36.8 C 73 17 96 Laboratory Results Laboratory Results - last 24 hr 12/07/24 12/07/24 12/07/24 12:10 12:46 16:48 WBC 9.75 RBC 4.22 Hgb 11.9 L Hct 36.6 L MCV 86.7 MCH 28.2 MCHC 32.5 RDW Std Deviation 43.8 RDW Coeff of Manda 14.0 Plt Count 262 MPV 10.1 Immature Gran % (Auto) Neut % (Auto) Lymph % (Auto) Burnett % (Auto) Eos % (Auto) Baso % (Auto) Neut # (Auto) Lymph # (Auto) Burnett # (Auto) Eos # (Auto) Baso # (Auto) Immature Gran # (Auto) Sodium 139 Potassium 3.9 Chloride 106 Carbon Dioxide 26 Anion Gap 7 BUN 12 Creatinine 0.62 Est Cr Clr Drug Dosing 98.3 eGFR 100.00 BUN/Creatinine Ratio 19.4 Glucose 156 H POC Glucose 195 H Calcium 8.0 L Phosphorus Magnesium 1.8 TSH 0.551 Nasal Screen MRSA (PCR) Negative 12/07/24 12/08/24 12/08/24 18:05 00:12 04:13 WBC 8.46 RBC 3.73 L Hgb 10.8 L Hct 32.9 L MCV 88.2 MCH 29.0 MCHC 32.8 RDW Std Deviation 45.2 RDW Coeff of Manda 14.2 Plt Count 247 MPV 10.3 Immature Gran % (Auto) 0.4 Neut % (Auto) 80.1 Lymph % (Auto) 10.9 Burnett % (Auto) 8.4 Eos % (Auto) 0.1 Baso % (Auto) 0.1 Neut # (Auto) 6.78 H Lymph # (Auto) 0.92 L Burnett # (Auto) 0.71 H Eos # (Auto) 0.01 Baso # (Auto) 0.01 Immature Gran # (Auto) 0.03 Sodium 140 Potassium 4.4 Chloride 109 H Carbon Dioxide 27 Anion Gap 4 BUN 11 Creatinine 0.64 Est Cr Clr Drug Dosing 97.2 eGFR 99.24 BUN/Creatinine Ratio 17.2 Glucose 145 H POC Glucose 139 H 144 H Calcium 8.0 L Phosphorus 3.6 Magnesium 2.0 TSH Nasal Screen MRSA (PCR) 12/08/24 07:13 WBC RBC Hgb Hct MCV MCH MCHC RDW Std Deviation RDW Coeff of Manda Plt Count MPV Immature Gran % (Auto) Neut % (Auto) Lymph % (Auto) Burnett % (Auto) Eos % (Auto) Baso % (Auto) Neut # (Auto) Lymph # (Auto) Burnett # (Auto) Eos # (Auto) Baso # (Auto) Immature Gran # (Auto) Sodium Potassium Chloride Carbon Dioxide Anion Gap BUN Creatinine Est Cr Clr Drug Dosing eGFR BUN/Creatinine Ratio Glucose POC Glucose 81 Calcium Phosphorus Magnesium TSH Nasal Screen MRSA (PCR) Diagnostic Findings Telemetry personally reviewed: Sinus rhythm. No arrhythmia. No significant pauses. Labs reviewed from 12/08/2024: Normal renal function, normal potassium, mild postoperative anemia. Critical care note reviewed from 12/08/2024. Medications Administered Current Inpatient Medications Acetaminophen (Acetaminophen 500 Mg Tab) 1,000 mg PO Q8 ANDREIA Stop: 01/06/25 13:59 Last Admin: 12/08/24 06:17 Dose: Not Given Al Hydrox/Mg Hydrox/Simethicone (Aluminum/Magnesium Susp 30 Ml Udc) 15 ml PO Q4H PRN PRN Reason: Heartburn Stop: 01/06/25 12:13 Apixaban (Apixaban 2.5 Mg Tab) 2.5 mg PO BID ANDREIA Stop: 01/07/25 08:59 Last Admin: 12/08/24 07:57 Dose: 2.5 mg Ascorbic Acid (Ascorbic Acid 500 Mg Tab) 500 mg PO BIDM [facility] Stop: 01/06/25 16:59 Last Admin: 12/08/24 07:51 Dose: 500 mg Bisacodyl (Bisacodyl 10 Mg Supp) 10 mg GA DAILY PRN PRN Reason: Constipation Stop: 01/06/25 12:13 Dextrose (Dextrose 50% 50 Ml Syringe) 25 - 50 ml IV UD PRN; Protocol PRN Reason: Hypoglycemia Protocol Stop: 01/06/25 12:49 Diphenhydramine HCl (Diphenhydramine 50 Mg/Ml Vial) 25 mg IV Q8H PRN PRN Reason: Itching Stop: 01/06/25 12:13 Docusate Sodium (Docusate Sodium 100 Mg Cap) 100 mg PO BID [facility] Stop: 01/06/25 20:59 Last Admin: 12/08/24 07:56 Dose: 100 mg Famotidine (Famotidine 40 Mg Tablet) 40 mg PO QAM [facility] Stop: 01/06/25 18:44 Last Admin: 12/08/24 07:56 Dose: Not Given Ferrous Gluconate (Ferrous Gluconate 324 Mg Tab) 324 mg PO BIDM [facility] Stop: 01/06/25 16:59 Last Admin: 12/08/24 07:52 Dose: 324 mg Gabapentin (Gabapentin 300 Mg Cap) 300 mg PO BID [facility] Stop: 01/06/25 12:59 Last Admin: 12/08/24 07:57 Dose: 300 mg Glucagon (Glucagon For Inj 1 Mg Vial) 1 mg SQ UD PRN; Protocol PRN Reason: Hypoglycemia Protocol Stop: 01/06/25 12:49 Glucose (Glucose 40% Gel 15 Gm Tube) 15 - 30 gm PO UD PRN; Protocol PRN Reason: Hypoglycemia Protocol Stop: 01/06/25 12:49 Glucose (Glucose 10 Tab/Tube) 4 - 8 tab PO UD PRN; Protocol PRN Reason: Hypoglycemia Protocol Stop: 01/06/25 12:49 Hydromorphone HCl (Hydromorphone Inj 0.5 Mg/0.5 Ml Syr) 0.5 mg IV Q2H PRN PRN Reason: Pain or Pre PT Stop: 12/21/24 12:13 Insulin Aspart (Insulin Aspart Per Unit Charge) 0 units SC Q6H [facility] Stop: 01/06/25 12:59 Last Admin: 12/08/24 06:17 Dose: Not Given Magnesium Hydroxide (Magnesium Hydroxide Susp 30 Ml Udc) 30 ml PO Q6H PRN PRN Reason: Constipation Stop: 01/06/25 12:13 Magnesium Oxide (Magnesium Oxide 400 Mg Tab) 400 mg PO HS [facility] Stop: 01/06/25 20:59 Last Admin: 12/07/24 20:50 Dose: 400 mg Metoclopramide HCl (Metoclopramide Hcl Inj 5 Mg/Ml 2 Ml Vial) 10 mg IV Q6H PRN PRN Reason: Nausea And Vomiting Stop: 01/06/25 12:13 Last Admin: 12/07/24 13:09 Dose: 10 mg Miscellaneous (Carbohydrates For Hypoglycemia ) 15 - 30 gm PO UD PRN PRN Reason: Hypoglycemia Protocol Stop: 01/06/25 12:49 Multivitamins (Multivitamin Tab) 1 tab PO QAM ANDREIA Stop: 01/07/25 08:59 Last Admin: 12/08/24 07:56 Dose: Not Given Naloxone HCl (Naloxone Hcl 0.4 Mg/1 Ml Vial/Carp) 0.1 mg IV Q5M PRN PRN Reason: Oversedation/Resp Depression Stop: 01/06/25 12:13 Ondansetron HCl (Ondansetron Inj 2 Mg/Ml 2 Ml Vial) 4 mg IV Q6H PRN PRN Reason: Nausea And Vomiting Stop: 01/06/25 12:13 Last Admin: 12/07/24 18:16 Dose: 4 mg Oxycodone HCl (Oxycodone Hcl Ir 5 Mg Tab (Immediate Release)) 5 - 10 mg PO Q4H PRN PRN Reason: Pain or Pre PT Stop: 12/21/24 12:13 Sennosides (Senna 8.6 Mg Tab) 17.2 mg PO HS [facility] Stop: 01/06/25 20:59 Last Admin: 12/07/24 20:50 Dose: 17.2 mg Zinc Sulfate (Zinc Sulfate 220 Mg Capsule) 220 mg PO QPM ANDREIA Stop: 01/06/25 20:59 Last Admin: 12/07/24 20:50 Dose: 220 mg PG Care Time/CCT Total # of Minutes Spent Total Time Spent with Patient: Total time spent is greater than 50% in coordination of care (as documented) at patient's floor/unit and/or counseling patient: Coding Level of Care Code 75656 SUB INP/OBS CARE 50MIN Diagnoses PEA (Pulseless electrical activity) I46.9 Acute respiratory failure J96.00 Paroxysmal atrial fibrillation I48.0
--- NOTE | 2024-12-08 10:10 | Orthopedic Progress Note ---
Date of Service December 08, 2024 Assessment & Plan (1) Status post right hip replacement: Plan: The patient is already working with PT and OT currently. Catheter has been removed. I spoke with the charge nurse. Cardiology will reportedly follow-up with her as an outpatient. [facility] [employer] has cleared her for transfer to a normal floor. Once bed space has been verified, she will be moved to the Med/Surg floor. We will continue to follow daily. Prevena wound VAC was not applied today, and will be started tomorrow. Continue total hip precautions. Eliquis was started at 8 AM this morning. Admission and Anticipated Discharge Date Admission Date: December 07, 2024 Subjective This 64-year-old female is seen this morning in her room. She is 1 day status post right total hip arthroplasty. PT and OT teams are currently working with her in her room. She denies any chest pain, shortness of breath, nausea, vomiting, or abdominal pain at this time. She is anxious to see how her left leg feels when getting out of bed. She denies any numbness or tingling in her lower extremities other than her baseline. No additional complaints. Physical Exam Physical Exam: General: Well-developed, well-nourished, middle-aged female, in no acute distress. Sitting in bed. Alert and oriented. Skin: Warm and dry with good turgor. Postsurgical dressing in place on the right hip is dry. Musculoskeletal: The patient has intact motor function to the lower extremities that is unchanged from last evening. Neurologic: Gross sensation is intact across both lower extremities by soft touch. Peripheral pulses are 2+. Results & Data Vital Signs (Past 12 Hours) Vital Signs Temp Pulse Resp BP Pulse Ox O2 Del Method 12/08/24 08:00 134/65 12/08/24 08:00 134/65 12/08/24 08:00 37.4 C 74 17 96 12/08/24 08:00 Room Air 12/08/24 08:00 71 12/08/24 07:00 37.1 C 71 21 134/65 94 Room Air 12/08/24 00:00 36.9 C 73 16 94 12/08/24 00:00 116/62 12/08/24 00:00 71 12/07/24 23:33 36.9 C 76 12 93 12/07/24 23:09 36.9 C 71 14 94 12/07/24 23:00 110/64 12/07/24 23:00 110/64 12/07/24 22:54 36.8 C 73 12 93 12/07/24 22:30 36.8 C 70 13 93 12/07/24 22:06 36.8 C 75 15 96 Laboratory Results CBC obtained today shows a white count of 8.46. H&H of 10.8 and 32.9. Platelets 247,000. Sodium 140, potassium 4.4, chloride 109, CO2 27. BUN of 11 with creatinine 0.64. Glucose 145. Magnesium is normal at 2.0. TSH normal at 0.551.
[2024-12-08] MEDS: POLYETHYLENE (MIRALAX) 17 GM PACK PO PRN (11:06)
[2024-12-08] MEDS ORDERED: NALOXONE HCL 0.4 MG/1 ML VIAL/CARP IV ONE (13:54)
[2024-12-08] MEDS ORDERED: SODIUM CHLORIDE 0.9% 10ML FLUSH IV ONE (13:54)
--- NOTE | 2024-12-08 15:22 | Orthopedic Progress Note ---
Date of Service December 08, 2024 Assessment & Plan Admission and Anticipated Discharge Date Admission Date: December 07, 2024 Subjective Afternoon rounds patient is doing well. She is on room air 93% saturated. She has a Almonte and have asked him to remove it now for the second time. We need to eliminate potential for bacteremia. Order placed for Almonte removal. She can use a bedpan. She can use a bedside commode. She can ambulate to the bathroom. Please keep walker at bedside. Vital signs stable afebrile. Wound dressing clean dry and intact. Neurovascular check femoral sciatic nerve on the right is good. Hip is located. Instructed on doing heel slides but crutches and leg lifts. She states she understands. 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 She needs inpatient rehab. Awaiting placement. Blood thinner started today. Dressing will to be changed tomorrow. Results & Data Vital Signs (Past 12 Hours) Vital Signs Temp Pulse Pulse Resp BP BP Pulse Ox 12/08/24 14:49 12/08/24 14:43 36.8 C 80 16 132/75 93 12/08/24 13:20 37.6 C H 150/87 H 12/08/24 13:09 82 20 12/08/24 11:09 96 H 17 12/08/24 10:24 37.6 C H 80 22 93 12/08/24 10:00 75 19 95 12/08/24 10:00 159/77 H 12/08/24 10:00 159/77 H 12/08/24 09:47 177/87 H 12/08/24 09:47 177/87 H 12/08/24 09:45 86 22 97 12/08/24 09:44 145/85 H 12/08/24 09:44 145/85 H 12/08/24 09:42 37.2 C 81 26 H 97 12/08/24 09:00 148/95 H 12/08/24 09:00 37.2 C 79 20 95 12/08/24 08:00 134/65 12/08/24 08:00 134/65 12/08/24 08:00 134/65 12/08/24 08:00 37.4 C 74 17 96 12/08/24 08:00 12/08/24 08:00 71 12/08/24 07:00 37.1 C 71 21 134/65 94 O2 Del Method 12/08/24 14:49 Room Air 12/08/24 14:43 Room Air 12/08/24 13:20 12/08/24 13:09 12/08/24 11:09 12/08/24 10:24 12/08/24 10:00 12/08/24 10:00 12/08/24 10:00 12/08/24 09:47 12/08/24 09:47 12/08/24 09:45 12/08/24 09:44 12/08/24 09:44 12/08/24 09:42 12/08/24 09:00 12/08/24 09:00 12/08/24 08:00 12/08/24 08:00 12/08/24 08:00 12/08/24 08:00 12/08/24 08:00 Room Air 12/08/24 08:00 12/08/24 07:00 Room Air
--- NOTE | 2024-12-08 16:10 | Electrocardiogram Report ---
Test Reason : Blood Pressure : */* mmHG Vent. Rate : 131 BPM Atrial Rate : 136 BPM P-R Int : * ms QRS Dur : 96 ms QT Int : 328 ms P-R-T Axes : * 20 -13 degrees QTcB Int : 485 ms Atrial fibrillation with rapid ventricular response Nonspecific ST abnormality Prolonged QT Abnormal ECG When compared with ECG of 01-Nov-2024 15:01, Atrial fibrillation has replaced Sinus rhythm Vent. rate has increased by [address] now depressed in Anterior leads Nonspecific T wave abnormality now evident in Inferior leads Confirmed by Gray Martell ([id number]) on 12/08/2024 4:09:32 PM Referred By: Preet Clancy Confirmed By: Gray Martell
--- NOTE | 2024-12-08 16:48 | Hospitalist Progress Note ---
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 At that time she required a tracheostomy for 6 weeks. 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 She presented to 27 for planned total right hip arthroplasty and developed PEA in the PACU with a brief run of atrial fibrillation after obtaining ROSC patient remains in normal sinus rhythm she has no remembrance of the event she has no cognitive decline #PEA/respiratory arrest. Patient notes a sensitivity to opiate therapy. REcovered, no abnormal cardiac rhythm or recurrence of atrial arrhythmia. Cardiac echocardiogram was performed with normal systolic function and no significant valvular or regional wall motion abnormalities. Cardiology consult will arrange 30 day outpt event monitor Patient will have nocturnal hypoxic eval #Previous VTE patient remains on Eliquis and this abuse postoperatively for DVT prevention for hip. After discussion with primary service orthopedics they requested hospitalist take over as primary tending to help facilitate movement through the hospital stay and possible referral to rehab. Anticipate eval for the orthopedic specialty hospital Admission and Anticipated Discharge Date Admission Date: December 07, 2024 Subjective pt is feeling better, has significant weakness to le, no arrythmia, daytime sleepiness and concern for night time sleep disordered breathing poa Physical Exam Physical Exam: Pleasant, has good sensation to LE but has some groin pain and weakness cardiac is regular lungs are clear Results & Data Results & Data Vital Signs (Past 12 Hours) Vital Signs Temp Pulse Pulse Resp BP BP Pulse Ox 12/08/24 14:49 80 12/08/24 14:49 12/08/24 14:43 98.2 F 80 16 132/75 93 12/08/24 13:20 99.7 F H 150/87 H 12/08/24 13:09 82 20 12/08/24 11:09 96 H 17 12/08/24 10:24 99.7 F H 80 22 93 12/08/24 10:00 75 19 95 12/08/24 10:00 159/77 H 12/08/24 10:00 159/77 H 12/08/24 09:47 177/87 H 12/08/24 09:47 177/87 H 12/08/24 09:45 86 22 97 12/08/24 09:44 145/85 H 12/08/24 09:44 145/85 H 12/08/24 09:42 99.0 F 81 26 H 97 12/08/24 09:00 148/95 H 12/08/24 09:00 99.0 F 79 20 95 12/08/24 08:00 134/65 12/08/24 08:00 134/65 12/08/24 08:00 134/65 12/08/24 08:00 99.3 F 74 17 96 12/08/24 08:00 12/08/24 08:00 71 12/08/24 07:00 98.8 F 71 21 134/65 94 O2 Del Method 12/08/24 14:49 12/08/24 14:49 Room Air 12/08/24 14:43 Room Air 12/08/24 13:20 12/08/24 13:09 12/08/24 11:09 12/08/24 10:24 12/08/24 10:00 12/08/24 10:00 12/08/24 10:00 12/08/24 09:47 12/08/24 09:47 12/08/24 09:45 12/08/24 09:44 12/08/24 09:44 12/08/24 09:42 12/08/24 09:00 12/08/24 09:00 12/08/24 08:00 12/08/24 08:00 12/08/24 08:00 12/08/24 08:00 12/08/24 08:00 Room Air 12/08/24 08:00 12/08/24 07:00 Room Air Laboratory Results review cbc review chemistry transfer from icu, all meds and orders reviewed PG Care Time/CCT Total # of Minutes Spent Total Time Spent with Patient: Total time spent is greater than 50% in coordination of care (as documented) at patient's floor/unit and/or counseling patient: Coding Level of Care Code 60352 SUB INP/OBS CARE 3/50MIN Diagnoses PEA (Pulseless electrical activity) I46.9 Guillain Asher syndrome G61.0 Afib I48.91 Acute postoperative pulmonary insufficiency J95.2
--- NOTE | 2024-12-09 06:55 | Orthopedic Progress Note ---
Date of Service December 09, 2024 Assessment & Plan Admission and Anticipated Discharge Date Admission Date: December 07, 2024 Orthopedic Progress Note AVSS. moving to BR with walker. at baseline neurologically. stable for transfer todat after PT/OT and dressing change.
[2024-12-09 08:12] VITALS: BP 160/91; PULSE 73; RESP 18; TEMP 97.3; O2SAT 99
[2024-12-09] MEDS: SENNA 8.6 MG TAB PO SCH (11:42)
--- NOTE | 2024-12-09 12:34 | Orthopedic Progress Note ---
Date of Service December 09, 2024 Assessment & Plan (1) Status post right hip replacement: Plan: The patient's dressing was changed today by me. Prevena wound VAC was applied. An adequate seal was obtained. She will leave this in place for the next 7 days. Follow-up with me on 12/15 at 3:30 PM for removal. Importance of participating with PT and OT was discussed. She will participate today. Anticipate that she will be discharged to [facility] later today as long as therapy goes well. She states she had 1 low oxygen event overnight secondary to her holding her breath to suppress her urge to urinate. Apparently the nursing staff were taking a longer time to assist her out of bed to the toilet. She states there were no abnormalities noted on her radiation monitor last night. I will discuss her possible discharge with the hospitalist team. Continue Eliquis 2.5 mg twice daily. Continue Percocet as needed for pain control. Weight-bear as tolerated using her walker. Call the office with any other concerns. Admission and Anticipated Discharge Date Admission Date: December 07, 2024 Subjective This 64 year old female was seen this morning in her room. She is 2 days status post right total hip arthroplasty. She states her chest is a little sore this morning, but otherwise denies any significant chest pain, shortness of breath, nausea, vomiting, or abdominal pain. She states she has been coughing up some mucus. She has been under bed to use her bedside commode. She has not walked to the bathroom yet. Her hip pain is controlled today. No other complaints. Physical Exam Physical Exam: General: Well-developed, well-nourished, middle-aged female, in no acute distress. Laying in bed. Alert and oriented. Skin: Warm and dry with good turgor. Postsurgical dressing in place on the right hip is dry. Musculoskeletal: The patient has intact motor function to the lower extremities that is unchanged from yesterday. Neurologic: Gross sensation is intact across both lower extremities by soft touch. Peripheral pulses are 2+. Results & Data Vital Signs (Past 12 Hours) Vital Signs Temp Pulse Pulse Pulse Pulse Resp BP 12/09/24 09:56 12/09/24 08:12 36.3 C L 73 18 160/91 H 12/09/24 07:27 67 12/09/24 03:42 36.6 C 82 20 120/73 12/09/24 03:15 74 Pulse Ox Pulse Ox O2 Del Method O2 Del Method 12/09/24 09:56 Room Air 12/09/24 08:12 99 Room Air 12/09/24 07:27 12/09/24 03:42 97 Room Air 12/09/24 03:15 93 Room Air
--- NOTE | 2024-12-09 13:17 | Discharge Summary ---
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 At that time she required a tracheostomy for 6 weeks. 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 She presented to [facility] for planned total right hip arthroplasty and developed PEA in the PACU with a brief run of atrial fibrillation after obtaining ROSC patient remains in normal sinus rhythm she has no remembrance of the event. She has no history of cognitive decline. #PEA/respiratory arrest. Patient notes a sensitivity to opiate therapy. Recovered, no abnormal cardiac rhythm or recurrence of atrial arrhythmia. Cardiac echocardiogram was performed with normal systolic function and no significant valvular or regional wall motion abnormalities. Cardiology consult will arrange 30 day outpt event monitor. Referral given on discharge. Nocturnal hypoxic study done without hypoxic events. #Previous VTE: patient remains on Eliquis and continued postoperatively for DVT prevention for hip. After discussion with primary service orthopedics they requested hospitalist take over as primary tending to help facilitate movement through the hospital stay and possible referral to rehab. #Constipation - increased Senna to BID. Cont docusate scheduled. Cont prn miralax as well as prn bisacodyl suppository. Pt accepted to [facility]. Pt discharged on stable condition. Admission HPI Per Admitting Provider Osteoarthritis right hip Discharge Exam Gen: no acute distress, sitting at the edge of bed comfortable HEENT: NC/AT, MMM Lungs: nonlabored breathing, CTAB CVS: s1s2nl, RRR Abd: nl bowel sounds, soft, NT / ND : no fernandez Ext: no edema, right hip wound vac in placed (managed by orthopedic) Neuro: AAOx3 Psych: calm, cooperative Discharge Plan Discharge Items Patient Disposition: Transfer Inpatient Rehab Fac Reason For Visit: Right Hip Osteoarthritis Discharge Diagnosis: Right hip s/p total hip replacement Condition on Discharge: Good Activity: Per Instructions section Lifting: Wait until after follow-up appointment Bathing: Keep incision dry Sexual Activity: Wait until after follow-up appointment Exercise/Sports: Wait until after follow-up appointment Driving/Machine Use: No driving until cleared by Dr. Clancy Weightbearing: Full weightbearing Non-emergency contact: Surgeon Call non-emergency contact if: you have any medication questions, your pain is not controlled, your temperature is above 101, your wound has increased redness, your wound has increased drainage and your wound pain has increased Follow-up/Referrals: Gray Matrell MD [Physician] - (please call office to set up 30-day event monitor. ) Attila Cedeño PA-C [Physician Sba Underwriter] - 12/15/24 3:30 pm Eagle Zuniga MD [Primary Care Provider] - Diet: Regular and Heart Healthy Addtl Attending Provider Instructions: New Medicine: * You will likely be taking one or more of these medicines: 1. Percocet - Take, as directed, when you need it, every four to six hours to control your pain. 2. Iron Sulfate - Take 1x each day for the month after surgery to help you replace the blood lost during surgery. 3. Eliquis - Thins your blood to lessen the chance of forming a blood clot. * The most common side effects of pain medicine and iron are nausea and constipation. If nausea or constipation is too much of a problem or if you have any questions about your new medicines or doses, call [facility] at . We will try to help you manage these issues. "VERY IMPORTANT TO READ AND REVIEW" Blood Clots and Blood Thinning Medicine: * You are given Eliquis during the immediate post-operative period to lessen the risk of blood clots forming in your legs and/or lungs. It is usually given for six weeks after surgery. Pain: * The immediate post-operative period after hip replacement surgery is often quite painful. * You are given a prescription for pain medicine. You should take it, as directed, when you need it, especially before physical therapy and before going to bed. Pain that interferes with sleep is very common and can last several months. * You will likely need pain medicine for the first two to four weeks. It will not stop all of the pain. The pain will lessen and as you feel better, you may change to milder pain medicine such as Tylenol. * The most common side effects of pain medicine are nausea and constipation, so don't take more than you need. Physical Therapy: * Follow the "Hip Precautions Instructions." * In some cases, the social science professor at the hospital will arrange to have a therapist come to your house for the first couple of weeks to help you learn these skills. * You need to practice on your own or with the help of a family member as needed. * When you learn these skills, most of the therapy can be done on your own. Home Exercise: * You were shown a series of exercises in the hospital. Do these exercises three to four times each day including the exercises you were shown in physical therapy. Walking: * Get up and walk several times each day. For the first four weeks, try not to stand or walk for more than one hour at a time. If you do stand or walk for more than one hour, you will not hurt anything, but your leg will likely swell. * As you feel comfortable, you may change from the walker or crutches to a cane and then to independent walking. SELF CARE INSTRUCTIONS AFTER TOTAL HIP REPLACEMENT Until the incision and soft tissues around your hip have healed, there is a possibility that the hip prosthesis could dislocate. A. Observe the following precautions to prevent dislocation: 1. Don't bend your hip greater than 90 degrees. 2. Avoid crossing your legs or ankles while standing or lying. 3. Sit with your feet placed 6 inches apart. 4. When sitting, keep your knees below your hips. Sit on a firm surface, avoid deep, soft chairs and couches. Use an elevated toilet seat in the bathroom. 5. Don't bend over at the waist. Use a long handled shoehorn and a sock aid to help you put on your shoes and socks. A explosive technician can help you mixing picker tender objects that are too high or too low to reach. 6. Keep car riding to a minimum for at least one month after surgery. B. Your balance may be shaky for a while. Use crutches or a walker until directed by your doctor. C. Use hand rails when walking on stairs. D. Wear low heeled shoes with non-slip soles. E. Be sure that your floors are free of things that could trip you - throw rugs, electrical cords, small objects. Avoid wet and waxed floors, especially with crutches and canes. F. Try to walk several times a day with rest periods between. G. Continue with all the exercises taught to you in the hospital. Again, make walking a part of your daily routine. VERY IMPORTANT TO READ AND REVIEW A. Take Eliquis (blood thinning medication) as directed by your doctor. B. There are a few signs you need to watch for after you are home. If you notice any of the followin. Increased severe hip pain. Some pain is expected especially when you exercise. 2. Increased swelling in your leg or knee; pain or swelling of the calf muscle in either lower leg. 3. Any fluid drainage from the incision. 4. Shortness of breath or chest pain. TEDs/Elastic Stockings: * The white elastic stockings help limit swelling and prevent blood clots from forming in your legs. The more you wear them, the more they work. * Wear them for six weeks. Prevention of Infection: * Take antibiotics one hour before any dental cleaning, dental work, urological procedure, gastrointestinal procedure or any invasive surgery in order to prevent your new joint from getting infected. * You may get the antibiotics from the doctor performing the procedure or we will call in a prescription to the pharmacy of your choice. Call the office for a prescription at least 2 days prior to your appointment. Diet: * You may return to previous diet. Things to Watch For: * Drainage from the incision site that occurs more than one week after your surgery. * Severely increased leg pain or swelling. * Increased redness at the incision site. * Fever above 101 degrees Fahrenheit. * Unusual chest pain or shortness of breath. * Unusual pain or burning with urination. Pending Studies at Discharge: Yes Studies:: bone pathology Stand-Alone Forms: My [facility] Skilled Items Patient informed of condition?: Yes DNR: No Discharge Level of Care: Acute rehab Communicable Disease: No Discharge Prognosis: Stable Lines: None Urinary Catheter: No Medications and DC Order Prescriptions: New acetaminophen [Tylenol Extra Strength] 500 mg Tablet 1,000 mg PO Q8 Qty: 90 0RF oxycodone 5 mg Tablet 5 - 10 mg PO Q4H PRN (Reason: post surgical pain) Qty: 10 0RF ferrous gluconate 324 mg (38 mg iron) Tablet 324 mg PO BIDM Qty: 60 0RF Eliquis 2.5 mg Tablet 2.5 mg PO BID Qty: 60 0RF bisacodyl 10 mg Suppository 10 mg [place] DAILY PRN (Reason: constipation) Qty: 10 0RF docusate sodium 100 mg Capsule 100 mg PO BID Qty: 60 0RF polyethylene glycol 3350 [Miralax] 17 gram Powder In Packet 17 g PO DAILY PRN (Reason: constipation) Qty: 100 0RF famotidine 40 mg Tablet 40 mg PO QAM Qty: 30 0RF sennosides [Senna Lax] 8.6 mg Tablet 17.2 mg PO BID Qty: 60 0RF Continued ascorbic acid (vitamin C) [Vitamin C] 1,000 mg Tablet 1,000 mg PO QAM acetaminophen [Tylenol Extended Release] 650 mg Tablet Extended Release 650 mg PO Q12H PRN (Reason: Pain) gabapentin 300 mg Capsule 300 mg PO BID zinc 50 mg Tablet 50 mg PO QPM Rx Instructions: administer on empty stomach, at least 1 hour before or after meal(s) cholecalciferol (vitamin D3) [Vitamin D3] 50 mcg (2,000 unit) Tablet 50 mcg PO QPM magnesium oxide 400 mg magnesium Capsule 400 mg PO HS Probiotic 10 billion cell Capsule 10,000 mmu cells PO QAM cyanocobalamin (vitamin B-12) 5,000 mcg Capsule 5,000 mcg PO QPM Collagen Powder 1 ea PO QAM Held ibuprofen 200 mg Tablet 400 mg PO Q8H PRN (Reason: Pain) Hold Instructions: Resume on 12/09/25. Discharge Orders: Discharge Order (Routine); Ordered 12/09/24 Ordered By: Belinda Grewal Admission Data Admit Date/Time: 12/07/24 09:04 Attending Provider: Belinda Grewal Admit Provider: Preet Clancy Primary Care Provider: Eagle Zuniga [facility]; Timi Ruiz; Gray Martell; Slade Aguiar; Preet Clnacy Hospital Stay Data Consultations 12/07/24 11:23 Consult Music Therapy Teacher Routine 12/07/24 11:26 Consult Cardiology Routine 12/07/24 11:57 Consult Hospitalist Routine 12/07/24 12:33 Consult Orthopedic Surgery Routine Procedures Performed Operation Date: 12/07/24 07:00 Actual Procedures p Right Total Hip Arthroplasty with Dual Mobility Implants, Uncemented(Right) - Preet Clancy MD Pending Results Patient Have Any Pending Studies at Discharge: Yes Discharge Instructions Given to Patient (Per Discharging Provider) New Medicine: * You will likely be taking one or more of these medicines: 1. Percocet - Take, as directed, when you need it, every four to six hours to control your pain. 2. Iron Sulfate - Take 1x each day for the month after surgery to help you replace the blood lost during surgery. 3. Eliquis - Thins your blood to lessen the chance of forming a blood clot. * The most common side effects of pain medicine and iron are nausea and constipation. If nausea or constipation is too much of a problem or if you have any questions about your new medicines or doses, call [facility] at . We will try to help you manage these issues. "VERY IMPORTANT TO READ AND REVIEW" Blood Clots and Blood Thinning Medicine: * You are given Eliquis during the immediate post-operative period to lessen the risk of blood clots forming in your legs and/or lungs. It is usually given for six weeks after surgery. Pain: * The immediate post-operative period after hip replacement surgery is often quite painful. * You are given a prescription for pain medicine. You should take it, as directed, when you need it, especially before physical therapy and before going to bed. Pain that interferes with sleep is very common and can last several months. * You will likely need pain medicine for the first two to four weeks. It will not stop all of the pain. The pain will lessen and as you feel better, you may change to milder pain medicine such as Tylenol. * The most common side effects of pain medicine are nausea and constipation, so don't take more than you need. Physical Therapy: * Follow the "Hip Precautions Instructions." * In some cases, the social science professor at the hospital will arrange to have a therapist come to your house for the first couple of weeks to help you learn these skills. * You need to practice on your own or with the help of a family member as needed. * When you learn these skills, most of the therapy can be done on your own. Home Exercise: * You were shown a series of exercises in the hospital. Do these exercises three to four times each day including the exercises you were shown in physical therapy. Walking: * Get up and walk several times each day. For the first four weeks, try not to stand or walk for more than one hour at a time. If you do stand or walk for more than one hour, you will not hurt anything, but your leg will likely swell. * As you feel comfortable, you may change from the walker or crutches to a cane and then to independent walking. SELF CARE INSTRUCTIONS AFTER TOTAL HIP REPLACEMENT Until the incision and soft tissues around your hip have healed, there is a pos sibility that the hip prosthesis could dislocate. A. Observe the following precautions to prevent dislocation: 1. Don't bend your hip greater than 90 degrees. 2. Avoid crossing your legs or ankles while standing or lying. 3. Sit with your feet placed 6 inches apart. 4. When sitting, keep your knees below your hips. Sit on a firm surface, avoid deep, soft chairs and couches. Use an elevated toilet seat in the bathroom. 5. Don't bend over at the waist. Use a long handled shoehorn and a sock aid to help you put on your shoes and socks. A explosive technician can help you mixing picker tender objects that are too high or too low to reach. 6. Keep car riding to a minimum for at least one month after surgery. B. Your balance may be shaky for a while. Use crutches or a walker until directed by your doctor. C. Use hand rails when walking on stairs. D. Wear low heeled shoes with non-slip soles. E. Be sure that your floors are free of things that could trip you - throw rugs, electrical cords, small objects. Avoid wet and waxed floors, especially with crutches and canes. F. Try to walk several times a day with rest periods between. G. Continue with all the exercises taught to you in the hospital. Again, make walking a part of your daily routine. VERY IMPORTANT TO READ AND REVIEW A. Take Eliquis (blood thinning medication) as directed by your doctor. B. There are a few signs you need to watch for after you are home. If you notice any of the followin. Increased severe hip pain. Some pain is expected especially when you exercise. 2. Increased swelling in your leg or knee; pain or swelling of the calf muscle in either lower leg. 3. Any fluid drainage from the incision. 4. Shortness of breath or chest pain. TEDs/Elastic Stockings: * The white elastic stockings help limit swelling and prevent blood clots from forming in your legs. The more you wear them, the more they work. * Wear them for six weeks. Prevention of Infection: * Take antibiotics one hour before any dental cleaning, dental work, urological procedure, gastrointestinal procedure or any invasive surgery in order to prevent your new joint from getting infected. * You may get the antibiotics from the doctor performing the procedure or we will call in a prescription to the pharmacy of your choice. Call the office for a prescription at least 2 days prior to your appointment. Diet: * You may return to previous diet. Things to Watch For: * Drainage from the incision site that occurs more than one week after your surgery. * Severely increased leg pain or swelling. * Increased redness at the incision site. * Fever above 101 degrees Fahrenheit. * Unusual chest pain or shortness of breath. * Unusual pain or burning with urination. Total Time Total Time Spent Total Time Spent (In Minutes): 45 Coding Level of Care Code 20696 INP/OBS DISCH >30 MIN Diagnoses PEA (Pulseless electrical activity) I46.9 Guillain Asher syndrome G61.0 Afib I48.91 Acute postoperative pulmonary insufficiency J95.2
--- NOTE | 2024-12-09 13:31 | Orthopedic Progress Note ---
Date of Service December 09, 2024 Assessment & Plan Admission and Anticipated Discharge Date Admission Date: December 07, 2024 Orthopedic Progress Note Sitting up comfortably in the chair. Denies any chest pain shortness of breath fever chills nausea vomiting headache. Neurovascular check femoral sciatic nerve right leg is intact. Calves are nontender. Wound dressing clean dry and intact changed to Prevena today. Vital signs are stable afebrile. Assessment doing well continue with care pathway and [facility] Communication between physician personal assistant and hospitalist have occurred. Case management informed of what the plan is. She will need transport. Patient is aware of plan and is looking forward to being discharged.
--- NOTE | 2024-12-09 19:47 | Electrocardiogram Report ---
Test Reason : Blood Pressure : */* mmHG Vent. Rate : 75 BPM Atrial Rate : 75 BPM P-R Int : 132 ms QRS Dur : 88 ms QT Int : 394 ms P-R-T Axes : 58 7 46 degrees QTcB Int : 439 ms Normal sinus rhythm Low voltage QRS Borderline ECG When compared with ECG of 07-Dec-2024 09:55, Sinus rhythm has replaced Atrial fibrillation Vent. rate has decreased by [address] no longer depressed in Anterior leads Confirmed by Gray Martell ([id number]) on 12/09/2024 7:47:08 PM Referred By: Preet Clancy Confirmed By: Gray Martell
--- NOTE | 2024-12-19 12:47 | Coding Query ---
To promote full compliance with coding requirements relating to patient care, provider participation is requested in all cases of surface plate inspector uncertainty. Please assist us with the question(s) below: Coding Question(s): The diagnosis(es) below was documented in the (surface plate inspector fill out source document ie H&P, progress notes, etc.) then subsequently fell off all further documentation. Please indicate if it is still a possible diagnosis or ruled out. Physician's Response(s): Acute Hypoxic Respiratory Failure ( ) Diagnosed ( X ) Ruled out ( ) Other (please specify) MTDD
== END 2024-12-09 14:43 | DRG 469 ==
LOC: ASU 05:22 → 1E 09:04 → SUATTDRO 09:04 → 2N 12-08 14:39